=== PATIENT | female | born 1965 | race Caucasian/White ===

== ENCOUNTER 2016-12-12 08:17 | Observation (INO) | payer MEDICARE, BC ==
[2016-12-12 08:23] VITALS: TEMP 98.4; O2SAT 99; BMI 23.0
[2016-12-12] MEDS ORDERED: TDAP Vaccine 0.5 mL Syr IM ONE (09:22)
--- NOTE | 2016-12-12 09:29 | ED PDOC ---
HPI: Trauma/Fall - HPI Time Seen by Provider: 12/12/16 09:09 Chief Complaint (Nursing): Abnormal Skin Integrity Additional Complaint(s): Patient is a 51 y/o F presenting after fall. She reports that she took a valium to sleep at 1am. She reports that she next woke up on the floor next to her bed. She denies other drug use. She denies anticoagulant use. She denies chest pain, shortness of breath, nausea/vomiting, hip pain or extremity pain. Denies new weakness or urinary incontinence. Last tetanus unknown. Past Medical History Vital Signs: Last Vital Signs Temp 98.4 F 12/12/16 08:22 Pulse 85 12/12/16 12:30 Resp 16 12/12/16 12:30 BP 138/73 12/12/16 12:30 Pulse Ox 99 12/12/16 17:25 - Medical History PMH: HTN (denies taking any meds for HTN at home), Multiple Sclerosis Denies: Fractures, HIV, Chronic Kidney Disease - Family History Family History: States: Unknown Family Hx - Home Medications Home Medications: Ambulatory Orders Medication Instructions Recorded Baclofen [Lioresal] 10 mg PO BID 10/25/15 Celecoxib [celeBREX] 200 mg PO DAILY 10/25/15 Losartan [Cozaar] 50 mg PO DAILY 10/25/15 Modafinil [Provigil] 200 mg PO BID 10/25/15 Teriflunomide [Aubagio] 14 mg PO DAILY 10/25/15 Topiramate [Topamax] 50 mg PO BID #0 tab 11/02/15 Amantadine [Amantadine 100 mg Cap] 100 mg PO BID 09/04/16 Diazepam [Valium] 10 mg PO BID 09/04/16 Gabapentin [Neurontin] 300 mg PO BID 09/04/16 Oxybutynin Chloride [Oxybutynin 10 mg PO DAILY 09/04/16 Chloride ER] Oxycodone HCl [Oxycontin] 20 mg PO Q12H 09/04/16 Oxycodone HCl/Acetaminophen 1 tab PO Q8H PRN 09/04/16 [Percocet 10-325 mg Tablet] Venlafaxine [Effexor XR] 37.5 mg PO DAILY 09/04/16 Amantadine [Amantadine 100 mg Cap] 100 mg PO BID #30 cap 09/09/16 Baclofen [Lioresal] 10 mg PO BID #30 tab 09/09/16 Celecoxib [celeBREX] 200 mg PO DAILY #30 cap 09/09/16 Gabapentin [Neurontin] 300 mg PO BID #30 cap 09/09/16 Losartan [Cozaar] 50 mg PO DAILY #30 tab 09/09/16 amLODIPine [Norvasc] 10 mg PO DAILY #30 tab 09/09/16 diaZEpam [Valium] 10 mg PO BID #30 tab 09/09/16 - Allergies Allergies/Adverse Reactions: Allergies Allergy/AdvReac Type Severity Reaction Status Date / Time No Known Allergies Allergy Verified 12/12/16 08:26 Review of Systems Constitutional: Negative for: Fever, Chills Cardiovascular: Negative for: Chest Pain, Palpitations, Edema, Light Headedness Respiratory: Negative for: Cough, Shortness of Breath, SOB with Exertion, Wheezing Gastrointestinal: Negative for: Nausea, Vomiting, Abdominal Pain, Diarrhea, Constipation Genitourinary Female: Negative for: Dysuria Musculoskeletal: Negative for: Neck Pain, Shoulder Pain, Arm Pain, Back Pain, Hand Pain, Leg Pain, Foot Pain Skin: Negative for: Rash, Lesions Neurological: Positive for: Headache (mild). Negative for: Weakness, Numbness, Incoordination, Change in Speech, Confusion, Seizures, Altered Mental Status, Dizziness Psych: Negative for: Anxiety, Depression Physical Exam - Reviewed Nursing Documentation Reviewed: Yes Vital Signs Reviewed: Yes - Physical Exam Appears: Positive for: Well, Non-toxic, No Acute Distress Head Exam: Negative for: ATRAUMATIC (3cm laceration to L forehead) Eye Exam: Positive for: EOMI, PERRL Neck: Positive for: Normal, Painless ROM, Supple Cardiovascular/Chest: Positive for: Regular Rate, Rhythm, Chest Non Tender Respiratory: Positive for: Normal Breath Sounds. Negative for: Rales, Rhonchi, Wheezing Gastrointestinal/Abdominal: Positive for: Soft. Negative for: Tenderness, Mass , Distended Back: Positive for: Normal Inspection. Negative for: L CVA Tenderness, R CVA Tenderness Extremity: Positive for: Normal ROM. Negative for: Pedal Edema Neurologic/Psych: Positive for: planning director II-XII, Oriented. Negative for: Alert ( lethargic) - Laboratory Results Result Diagrams: 12/12/16 10:50 12/12/16 10:50 - ECG O2 Sat by Pulse Oximetry: 99 Medical Decision Making Medical Decision Making: Patient presenting after fall. Will get CT head, CT c-spine and give tetanus 10:16AM EKG shows NSR at 80 bpm with normal intervals and no ST changes. 10:26AM called to provide collateral information. He reports that patient always has difficulty sleeping at night. He reports that she did not sleep well last night and took her anxiety medication which causes her to get sleepy. She reports that she fell out of bed and hit her head on the corner of the dresser. 2:23PM Refer to downtime chart for futher information CT head and CT c-spine negative for acute disease. Utox shows opiods and benzodiazepines. Labs reviewed and normal creatinine but instructed to follow- up due to increasing bun. Normal WBC and baseline anemia. Drinking water and eating a tray of food in ED. Laceration cleaned and repaired with 3 ok. Patient is now ambulating around the ED with her cane (baseline) and tolerating po. Patient is at baseline. Walking around. Family member came to pick her up ED OBSERVATION Discharge: Yes Date of observation admission: 12/12/16 Time of observation admission: 10:05 - Observation admission statement Patient is being placed in observation because:: Continued monitoring due to altered mental status and recent fall - Goals of Observation Goals of observation are:: monitoring, neuro checks Disposition - Clinical Impression Clinical Impression: Fall - Disposition Disposition: Routine/Home Disposition Time: 10:02 Condition: FAIR Laceration - Laceration Repair No standard instances Wound Length (In cm): 2 in Description Of Wound: Linear Anesthesia: Lidocaine 1% Wound Examination: Irrigated With Saline Wound Closure: [place] (3) Wound Complexity: Simple
[2016-12-12 10:58] LABS: BASO % 0.5 % (0.0-2.0); EOS # 0.5 K/uL (0.0-0.7); HEMATOCRIT 36.1 % (34.0-47.0); LYMPH # 1.8 K/uL (1.0-4.3); LYMPH % 28.2 % (20.0-40.0); MEAN CELL VOLUME 88.9 fl (81.0-99.0); MEAN CORPUSCULAR HEMOGLOBIN 29.2 pg (27.0-31.0); MEAN CORPUSCULAR HGB CONC 32.8 g/dL (33.0-37.0); MEAN PLATELET VOLUME 8.7 fl (7.2-11.7); MONO # 0.7 K/uL (0.0-0.8); MONO % 11.2 % (0.0-10.0); NEUT # 3.3 K/uL (1.8-7.0); NEUT % 52.1 % (50.0-75.0); NRBC % 0.1 % (0.0-0.0); RED CELL DISTRIBUTION WIDTH 13.2 % (11.5-14.5); WHITE BLOOD COUNT 6.3 K/uL (4.8-10.8)
[2016-12-12 11:16] LABS: ALCOHOL SERUM < 10 mg/dl (0-10); BLOOD UREA NITROGEN 43 mg/dl (7-17); CALCIUM 9.6 mg/dL (8.4-10.2); CARBON DIOXIDE 29 mmol/L (22-30); CHLORIDE 100 mmol/L (98-107); GFR AFRICAN-AMERICAN > 60; GLUCOSE,RANDOM 131 mg/dL (65-105); POTASSIUM 3.6 MMOL/L (3.6-5.0); SODIUM 140 mmol/l (132-148)
--- NOTE | 2016-12-12 12:39 | CT ---
PROCEDURE: CT HEAD WITHOUT CONTRAST. HISTORY: head injury, fall COMPARISON: Comparison made with CT scan brain dated 10/25/2015 TECHNIQUE: Axial computed tomography images were obtained through the head/brain without intravenous contrast. Radiation dose: Total exam DLP = 1087.03 mGy-cm. This CT exam was performed using one or more of the following dose reduction techniques: Automated exposure control, adjustment of the mA and/or kV according to patient size, and/or use of iterative reconstruction technique. FINDINGS: HEMORRHAGE: No acute parenchymal, subarachnoid or extra-axial hemorrhage. BRAIN: Moderate -significant chronic periventricular white matter ischemic changes again seen extending peripherally into the deep and subcortical white matter both cerebral hemispheres. There is also some extension these changes into the white matter tracts of both basal nuclei. VENTRICLES: Moderate to significant central volume loss evidenced by disproportionate enlargement of the ventricles compared the sulci. CALVARIUM: No acute calvarial fractures. . There is a small left superior frontal scalp contusion with overlying scalp laceration associated with a few small bubbles of subcutaneous air PARANASAL SINUSES: Unremarkable as visualized. No significant inflammatory changes. MASTOID AIR CELLS: Unremarkable as visualized. No inflammatory changes. OTHER FINDINGS: None. IMPRESSION: No acute intracranial hemorrhage. Moderate to significant chronic white matter ischemic changes with extension into the white matter tracts of both basal nuclei. Left superior frontal scalp contusion/laceration associate with a few small bubbles of subcutaneous air. Moderate central volume loss.
--- NOTE | 2016-12-12 12:47 | CT ---
PROCEDURE: CT Cervical Spine without contrast HISTORY: <fall> COMPARISON: None available. TECHNIQUE: Axial computed tomography images were obtained of the cervical spine without the use of intravenous contrast. Coronal and sagittal reformatted images were created and reviewed. Radiation dose: Total exam DLP = 382.97 mGy-cm. This CT exam was performed using one or more of the following dose reduction techniques: Automated exposure control, adjustment of the mA and/or kV according to patient size, and/or use of iterative reconstruction technique. FINDINGS: VERTEBRAE: No acute compression fractures nor retropulsed fragments. . Vertebral bodies exhibit normal stature. All There is straightening of the normal upper cervical lordosis which may in part be secondary to patient positioning gantry however underlying element of muscle spasm may contribute. DISCS/SPINAL CANAL/NEURAL FORAMINA: There is mild disc space narrowing seen at the C5-C6 and C6-C7 levels. No disc herniation or significant disc bulge. Facet joints are slightly overgrown low with minimal degenerative squaring of the uncovertebral joints. The overall central canal and exit foramina do appear adequate. . The remaining levels exhibit relatively adequate disc height. No disc herniation or significant disc bulge. Central canal and exit foramina are adequate at the remaining levels. PARASPINAL SOFT TISSUES: Prevertebral soft tissues unremarkable. OTHER FINDINGS: None. IMPRESSION: No acute fractures. Straightening of the normal cervical lordosis could be secondary to patient positioning in the gantry however underlying element of muscle spasm may contribute. Minor multilevel degenerative spondylosis.
[2016-12-12] MEDS ORDERED: Lidocaine 1% Inj (20ml) ONE (13:07)
[2016-12-12 14:51] VITALS: BP 138/73; PULSE 85; RESP 16
--- NOTE | 2016-12-13 18:51 | CARD ---
APPROVED REPORT EKG Measurement Heart [id number] <Conclusion> Normal sinus rhythm Normal ECG
== END 2016-12-12 17:25 | disposition home or self-care (01) ==
LOC: H.ER 08:17 → H.EROBSV 10:00
PROVIDERS: ADMIT Emergency Medicine; ATTEND Emergency Medicine
DX: S01.81XA Laceration without foreign body of other part of head, initial encounter (principal); W06.XXXA Fall from bed, initial encounter; Y93.9 Activity, unspecified; Y92.003 Bedroom of unspecified non-institutional (private) residence as the place of occurrence of the external cause; Y99.9 Unspecified external cause status; Z23 Encounter for immunization; I10 Essential (primary) hypertension; D64.9 Anemia, unspecified; G35 Multiple sclerosis
CPT/HCPCS: 12001; 70450; 72125; 80048; 85025; 90471; 90715; G0378; G0480

== ENCOUNTER 2017-03-13 01:48 | Emergency (ER) | payer MEDICARE, BC ==
[2017-03-13 01:49] VITALS: BMI 23.0
--- NOTE | 2017-03-13 02:25 | ED PDOC ---
HPI: General Adult Time Seen by Provider: 03/13/17 02:10 Chief Complaint (Nursing): Anxiety Chief Complaint (Provider): eval History Per: Patient, Family (cousin) History/Exam Limitations: no limitations Onset/Duration Of Symptoms: Hrs Current Symptoms Are (Timing): Better Additional History Per: Patient Additional Complaint(s): 51 y/o female brought in by EMS for eval. Patient states tonight she developed crampy abdominal pain, threw up once, and afterwards felt "panicked" and had difficulty catching her breath with associated chest tightness. Patient states upon arrival to ED all symptoms resolved. Patient denies headache, dizziness, extremity numbness/weakness, chest pain, shortness of breath, palpitations, abdominal pain, changes in bowel movements, urinary symptoms. Patient denies suicidal/homicidal ideations or any other psych complaint at this time. Past Medical History Reviewed: Historical Data, Nursing Documentation, Vital Signs Vital Signs: Last Vital Signs Temp 97.8 F 03/13/17 04:52 Pulse 82 03/13/17 04:52 Resp 16 03/13/17 04:52 BP 143/83 03/13/17 04:52 Pulse Ox 100 03/13/17 05:04 - Medical History PMH: Anxiety, Depression, HTN (denies taking any meds for HTN at home), Multiple Sclerosis, Seizures, Chronic Pain Denies: Fractures, HIV, Chronic Kidney Disease - Surgical History Surgical History: No Surg Hx - Family History Family History: States: Unknown Family Hx - Living Arrangements Living Arrangements: With Family - Home Medications Home Medications: Ambulatory Orders Medication Instructions Recorded Baclofen [Lioresal] 10 mg PO BID 10/25/15 Celecoxib [celeBREX] 200 mg PO DAILY 10/25/15 Losartan [Cozaar] 50 mg PO DAILY 10/25/15 Modafinil [Provigil] 200 mg PO BID 10/25/15 Teriflunomide [Aubagio] 14 mg PO DAILY 10/25/15 Topiramate [Topamax] 50 mg PO BID #0 tab 11/02/15 Amantadine [Amantadine 100 mg Cap] 100 mg PO BID 09/04/16 Diazepam [Valium] 10 mg PO BID 09/04/16 Gabapentin [Neurontin] 300 mg PO BID 09/04/16 Oxybutynin Chloride [Oxybutynin 10 mg PO DAILY 09/04/16 Chloride ER] Oxycodone HCl [Oxycontin] 20 mg PO Q12H 09/04/16 Oxycodone HCl/Acetaminophen 1 tab PO Q8H PRN 09/04/16 [Percocet 10-325 mg Tablet] Venlafaxine [Effexor XR] 37.5 mg PO DAILY 09/04/16 Amantadine [Amantadine 100 mg Cap] 100 mg PO BID #30 cap 09/09/16 Baclofen [Lioresal] 10 mg PO BID #30 tab 09/09/16 Celecoxib [celeBREX] 200 mg PO DAILY #30 cap 09/09/16 Gabapentin [Neurontin] 300 mg PO BID #30 cap 09/09/16 Losartan [Cozaar] 50 mg PO DAILY #30 tab 09/09/16 amLODIPine [Norvasc] 10 mg PO DAILY #30 tab 09/09/16 diaZEpam [Valium] 10 mg PO BID #30 tab 09/09/16 - Allergies Allergies/Adverse Reactions: Allergies Allergy/AdvReac Type Severity Reaction Status Date / Time No Known Allergies Allergy Verified 12/12/16 08:26 Review of Systems ROS Statement: Except As Marked, All Systems Reviewed And Found Negative Psych: Positive for: Anxiety Physical Exam - Reviewed Nursing Documentation Reviewed: Yes Vital Signs Reviewed: Yes - Physical Exam Appears: Positive for: Well, Non-toxic, No Acute Distress Head Exam: Positive for: ATRAUMATIC, NORMAL INSPECTION, NORMOCEPHALIC Skin: Positive for: Normal Color Eye Exam: Positive for: Normal appearance ENT: Positive for: Normal ENT Inspection Cardiovascular/Chest: Positive for: Regular Rate, Rhythm Respiratory: Positive for: Normal Breath Sounds Gastrointestinal/Abdominal: Positive for: Normal Exam Back: Positive for: Normal Inspection Extremity: Positive for: Normal ROM Neurologic/Psych: Positive for: Alert, Oriented - Laboratory Results Result Diagrams: 03/13/17 02:49 03/13/17 02:49 Urine POC: Negative Urine dip results: Negative for: Leukocyte Esterase, Blood, Nitrate - ECG ECG: Positive for: Viewed By Me (reviewed by ED attending) ECG Rhythm: Positive for: Sinus Rhythm O2 Sat by Pulse Oximetry: 100 - Progress ED Course And Treament: labs, urine, EKG, Clonidine PO On re-eval, patient BP still elevated, IV labetalol ordered, Potassium PO ordered for 3.4 level 5:00 Patient resting comfortably, no acute complaints. Patient educated on findings, advised follow up PMD for BP eval. Follow up neurology as scheduled. Return to ED for worsening/concerning symptoms. Disposition - Clinical Impression Clinical Impression: Hypertension, Anxiety - Patient ED Disposition Is Patient to be Admitted: No Counseled Patient/Family Regarding: Studies Performed, Diagnosis, Need For Followup - Disposition Referrals: Igor Alvarez MD [Primary Care Provider] - Disposition: Routine/Home Disposition Time: 04:59 Condition: IMPROVED Instructions: Hypertension (ED), Anxiety (ED)
[2017-03-13 02:52] LABS: BASO # 0.1 K/uL (0.0-0.2); BASO % 0.7 % (0.0-2.0); EOS % 0.1 % (0.0-4.0); HEMATOCRIT 38.2 % (34.0-47.0); LYMPH # 0.9 K/uL (1.0-4.3); MEAN PLATELET VOLUME 8.2 fl (7.2-11.7); MONO # 0.5 K/uL (0.0-0.8); MONO % 6.8 % (0.0-10.0); NEUT # 6.3 K/uL (1.8-7.0); NEUT % 80.4 % (50.0-75.0); RED CELL DISTRIBUTION WIDTH 13.8 % (11.5-14.5); WHITE BLOOD COUNT 7.8 K/uL (4.8-10.8)
[2017-03-13 03:21] LABS: BLOOD UREA NITROGEN 15 mg/dl (7-17); CALCIUM 10.6 mg/dL (8.4-10.2); CARBON DIOXIDE 26 mmol/L (22-30); CHLORIDE 108 mmol/L (98-107); GFR AFRICAN-AMERICAN > 60; GLUCOSE,RANDOM 113 mg/dL (65-105); POTASSIUM 3.4 MMOL/L (3.6-5.0); SODIUM 147 mmol/l (132-148)
[2017-03-13 03:22] LABS: ALB/GLOB RATIO 1.4 (1.0-2.1); ALKALINE PHOSPHATASE 83 U/L (38-126); ALT/SGPT 53 U/L (9-52); AST/SGOT 37 U/L (14-36); BILIRUBIN,TOTAL 0.4 mg/dl (0.2-1.3)
[2017-03-13] MEDS ORDERED: Potassium Chloride 20 mEq ER Tab PO ONE ×2 (03:25→03:32)
[2017-03-13] MEDS ORDERED: Labetalol 5 mg/ml Inj 20ML IVP STA (04:00)
[2017-03-13 04:55] VITALS: BP 143/83; PULSE 82; RESP 16; TEMP 97.8
[2017-03-13 05:01] VITALS: O2SAT 100
== END 2017-03-13 05:23 | disposition home or self-care (01) ==
LOC: H.ER 01:48
DX: F41.9 Anxiety disorder, unspecified (principal); I10 Essential (primary) hypertension

== ENCOUNTER 2017-09-23 15:22 | Inpatient (IN) | payer MEDICARE, BC ==
[2017-09-23 15:23] VITALS: BMI 23.0
--- NOTE | 2017-09-23 15:48 | ED PDOC ---
HPI: General Adult Time Seen by Provider: 09/23/17 15:35 Chief Complaint (Nursing): Infusion Therapy Chief Complaint (Provider): VISUAL DIFFICULTY/NUMBNESS RIGHT LEG History Per: Patient (52 Y/O FEMALE H/O MULTIPLE SCLEROSIS HERE WITH RIGHT LEG NUMBNESS/VISUAL DISTURBANCE THIS WEEK. STATES SHE IS UNDER CARE OF DR. CHAVEZ AND ADVISED BY HIM TO COME TO ED FOR IV STEROIDS. DENIES ANY FEVERS/CHILLS. NOTES FREQUENT UTIS.) Past Medical History Reviewed: Historical Data, Nursing Documentation, Vital Signs Vital Signs: Last Vital Signs Temp 99.1 F 09/23/17 15:26 Pulse 114 H 09/23/17 15:26 Resp 19 09/23/17 15:26 BP 165/89 H 09/23/17 15:26 Pulse Ox 98 09/23/17 15:48 - Medical History PMH: Anxiety, Depression, HTN (denies taking any meds for HTN at home), Multiple Sclerosis, Seizures, Chronic Pain Denies: Fractures, HIV, Chronic Kidney Disease - Family History Family History: States: Unknown Family Hx - Home Medications Home Medications: Ambulatory Orders Medication Instructions Recorded Baclofen [Lioresal] 10 mg PO BID 10/25/15 Celecoxib [celeBREX] 200 mg PO DAILY 10/25/15 Losartan [Cozaar] 50 mg PO DAILY 10/25/15 Modafinil [Provigil] 200 mg PO BID 10/25/15 Teriflunomide [Aubagio] 14 mg PO DAILY 10/25/15 Topiramate [Topamax] 50 mg PO BID #0 tab 11/02/15 Amantadine [Amantadine 100 mg Cap] 100 mg PO BID 09/04/16 Diazepam [Valium] 10 mg PO BID 09/04/16 Gabapentin [Neurontin] 300 mg PO BID 09/04/16 Oxybutynin Chloride [Oxybutynin 10 mg PO DAILY 09/04/16 Chloride ER] Oxycodone HCl [Oxycontin] 20 mg PO Q12H 09/04/16 Oxycodone HCl/Acetaminophen 1 tab PO Q8H PRN 09/04/16 [Percocet 10-325 mg Tablet] Venlafaxine [Effexor XR] 37.5 mg PO DAILY 09/04/16 amLODIPine [Norvasc] 10 mg PO DAILY #30 tab 09/09/16 - Allergies Allergies/Adverse Reactions: Allergies Allergy/AdvReac Type Severity Reaction Status Date / Time No Known Allergies Allergy Verified 12/12/16 08:26 Review of Systems ROS Statement: Except As Marked, All Systems Reviewed And Found Negative Physical Exam - Reviewed Nursing Documentation Reviewed: Yes Vital Signs Reviewed: Yes - Physical Exam Appears: Positive for: Well, Non-toxic, No Acute Distress Head Exam: Positive for: ATRAUMATIC, NORMAL INSPECTION, NORMOCEPHALIC Skin: Positive for: Normal Color, Warm, DRY Eye Exam: Positive for: EOMI, Normal appearance, PERRL ENT: Positive for: Normal ENT Inspection Neck: Positive for: Normal, Painless ROM Cardiovascular/Chest: Positive for: Regular Rate, Rhythm Respiratory: Positive for: CNT, Normal Breath Sounds Gastrointestinal/Abdominal: Positive for: Normal Exam, Bowel Sounds, Soft Back: Positive for: Normal Inspection Extremity: Positive for: Normal ROM Neurologic/Psych: Positive for: Alert, Oriented - Laboratory Results Result Diagrams: 09/23/17 16:14 09/23/17 16:14 - ECG O2 Sat by Pulse Oximetry: 98 - Progress ED Course And Treament: D/W DR. CHAVEZ. RECOMMENDS ADMISSION AND IV SOLUMEDROL DAILY X 5 DAYS. D/W DR. HERRERA. SOLUMEDROL 1 GM IV X 1 DOSE Disposition - Clinical Impression Clinical Impression: Multiple sclerosis exacerbation - Patient ED Disposition Is Patient to be Admitted: Yes - Disposition Disposition Time: 17:02 Condition: FAIR Forms: [facility] (Fijian) - Pt Status Changed To: Hospital Disposition Of: Inpatient - Admit Certification Admit to Inpatient:: After my assessment, the patient will require hospitalization for at least two midnights. This is because of the severity of symptoms shown, intensity of services needed, and/or the medical risk in this patient being treated as an outpatient.
[2017-09-23 16:22] LABS: BASO # 0.1 K/uL (0.0-0.2); BASO % 1.4 % (0.0-2.0); EOS # 0.2 K/uL (0.0-0.7); EOS % 3.1 % (0.0-4.0); LYMPH # 1.9 K/uL (1.0-4.3); LYMPH % 35.7 % (20.0-40.0); MEAN CELL VOLUME 87.7 fl (81.0-99.0); MEAN CORPUSCULAR HEMOGLOBIN 29.3 pg (27.0-31.0); MEAN CORPUSCULAR HGB CONC 33.4 g/dL (33.0-37.0); MEAN PLATELET VOLUME 7.7 fl (7.2-11.7); MONO # 0.4 K/uL (0.0-0.8); NEUT # 2.7 K/uL (1.8-7.0); NEUT % 52.8 % (50.0-75.0); NRBC % 0.1 % (0.0-0.0); RBC 4.44 Mil/uL (3.80-5.20); RED CELL DISTRIBUTION WIDTH 13.6 % (11.5-14.5); WHITE BLOOD COUNT 5.2 K/uL (4.8-10.8)
[2017-09-23 16:29] LABS: ALB/GLOB RATIO 1.3 (1.0-2.1); ALBUMIN 4.9 g/dL (3.5-5.0); ALT/SGPT 50 U/L (9-52); AST/SGOT 40 U/L (14-36); BLOOD UREA NITROGEN 36 mg/dl (7-17); CALCIUM 10.1 mg/dL (8.4-10.2); GFR AFRICAN-AMERICAN > 60; GFR NON-AFRICAN AMERICAN > 60
[2017-09-23 16:33] LABS: SQUAMOUS EPITHIAL 1 /hpf (0-5); URINE BILIRUBIN NEGATIVE (NEGATIVE); URINE BLOOD NEGATIVE (NEGATIVE); URINE CLARITY CLEAR (Clear); URINE COLOR YELLOW (YELLOW); URINE GLUCOSE (UA) NEG (Normal); URINE HYALINE CAST 0-2 /hpf (0-2); URINE LEUKOCYTE ESTERASE NEG Leu/uL (Negative); URINE PROTEIN 30 mg/dL (NEGATIVE); URINE UROBILINOGEN 0.2-1.0 mg/dL (0.2-1.0)
[2017-09-23] MEDS ORDERED: methylPREDNISolone 1 GM in Sodium Chloride 0.9% 250 ML IV SCH (16:45)
--- NOTE | 2017-09-23 17:09 | CT ---
PROCEDURE: CT HEAD WITHOUT CONTRAST. HISTORY: MS EXACERBATION/DIFFICULTY WITH VISION/RT LEG NUMB COMPARISON: Noncontrast head CT performed 12/12/16 TECHNIQUE: Axial computed tomography images were obtained through the head/brain without intravenous contrast. Radiation dose: Total exam DLP = 838.80 mGy-cm. This CT exam was performed using one or more of the following dose reduction techniques: Automated exposure control, adjustment of the mA and/or kV according to patient size, and/or use of iterative reconstruction technique. FINDINGS: HEMORRHAGE: No intracranial hemorrhage. BRAIN: Diffuse atrophy. No mass effect or edema. Dense intracranial atherosclerosis. Moderate scattered periventricular and subcortical white matter hypodensities, which are nonspecific, but often seen with chronic microvascular ischemic disease. VENTRICLES: Ventricular prominence remains out of proportion to sulcal size and may be seen in the setting of NPH; correlate clinically. CALVARIUM: Unremarkable. PARANASAL SINUSES: Unremarkable as visualized. No significant inflammatory changes. MASTOID AIR CELLS: Unremarkable as visualized. No inflammatory changes. OTHER FINDINGS: None. IMPRESSION: Moderate nonspecific white matter changes. Ventricular prominence remains out of proportion to sulcal size and may be seen in the setting of NPH; correlate clinically. Generalized atrophy. Please note that MRI with diffusion imaging is more sensitive in the detection of acute ischemic event.
--- NOTE | 2017-09-23 17:52 | RAD ---
PROCEDURE: CHEST RADIOGRAPH, 1 VIEW HISTORY: ROUTINE COMPARISON: 09/04/2016 FINDINGS: LUNGS: Clear. PLEURA: No pneumothorax or pleural fluid seen. CARDIOVASCULAR: No radiographic findings to suggest acute or significant cardiovascular disease. OSSEOUS STRUCTURES: No significant abnormalities. VISUALIZED UPPER ABDOMEN: Normal. OTHER FINDINGS: None. IMPRESSION: No active disease. No acute/significant interval changes.
[2017-09-23] MEDS ORDERED: Patient's Own Med (Oxycodone Hcl/Acetaminophen [Percocet 10-325 Mg Tablet] 1 TAB) PO PRN (23:01)
[2017-09-23] MEDS ORDERED: HYDROCODONE BITARTRATE 10 MG PO SCH (23:15)
[2017-09-23] MEDS: Ergocalciferol 50,000 Intl Units Cap PO SCH (23:36)
[2017-09-24] MEDS ORDERED: Pneumococcal 23-Valent Vaccine IM ONE (07:22)
[2017-09-24] MEDS: Enoxaparin 40 mg Syringe SC SCH (09:32)
[2017-09-24] MEDS: methylPREDNISolone 1 GM in Sodium Chloride 0.9% 250 ML IV SCH (10:19)
--- NOTE | 2017-09-24 11:18 | CP.PCM.HP ---
History of Present Illness - History of Present Illness History of Present Illness: Patient is 52 y/o lady with Hx of MS. She presented in ER with increasing weakness, numbness, unsteadiness in the limbs, increase in the spasticity, diplopia and visual problems, severe disequilibrium. The patient was seen in my office recently an she was able to ambulate and at that time denied visual problem and diplopia. Will admit for high steroid dose iv for exacerbation of MS. Present on Admission - Present on Admission Any Indicators Present on Admission: No Review of Systems - Constitutional Constitutional: Weakness - EENT Eyes: Blurred Vision, Diplopia Ears: Disequilibrium, Dizziness Nose/Mouth/Throat: As Per HPI - Breasts Breasts: As Per HPI - Cardiovascular Cardiovascular: As Per HPI - Respiratory Respiratory: As Per HPI - Gastrointestinal Gastrointestinal: As Per HPI - Genitourinary Genitourinary: Urinary Incontinence - Musculoskeletal Musculoskeletal: Abnormal Gait, Muscle Weakness, Numbness - Neurological Neurological: Abnormal Gait, Abnormal Movements, Abnormal Speech, Disequilibrium , Dizziness, Numbness, Sensory Deficit, Weakness - Psychiatric Psychiatric: Anxiety, Depression - Endocrine Endocrine: As Per HPI Past Patient History - Past Medical History & Family History Past Medical History?: Yes - Past Social History Smoking Status: Never Smoked - CARDIAC Hx Cardiac Disorders: Yes Hx Hypertension: Yes (denies taking any meds for HTN at home) - PULMONARY Hx Respiratory Disorders: No - NEUROLOGICAL Hx Neurological Disorder: Yes - HEENT Hx HEENT Problems: Yes Other/Comment: wears eyeglasses - RENAL Hx Chronic Kidney Disease: No - ENDOCRINE/METABOLIC Hx Endocrine Disorders: No - HEMATOLOGICAL/ONCOLOGICAL Hx Blood Disorders: Yes Hx Anemia: Yes Hx Human Immunodeficiency Virus (HIV): No - INTEGUMENTARY Hx Dermatological Problems: No - MUSCULOSKELETAL/RHEUMATOLOGICAL Hx Falls: Yes Hx Fractures: No - GASTROINTESTINAL Hx Gastrointestinal Disorders: No - GENITOURINARY/GYNECOLOGICAL Hx Genitourinary Disorders: Yes Other/Comment: neurogenic bladder - PSYCHIATRIC Hx Psychophysiologic Disorder: Yes Hx Anxiety: Yes Hx Depression: Yes Hx Substance Use: No - SURGICAL HISTORY Hx Surgeries: Yes Other/Comment: Removal of ovarian cyst - ANESTHESIA Hx Anesthesia: Yes Hx Anesthesia Reactions: No Hx Malignant Hyperthermia: No Has any member of the family had a problem w/ anesthesia?: No Meds Allergies/Adverse Reactions: Allergies Allergy/AdvReac Type Severity Reaction Status Date / Time No Known Allergies Allergy Verified 12/12/16 08:26 Physical Exam - Constitutional Appears: Chronically Ill - Head Exam Head Exam: ATRAUMATIC, NORMAL INSPECTION, NORMOCEPHALIC - ENT Exam ENT Exam: Normal Exam - Neck Exam Neck exam: Positive for: Normal Inspection - Respiratory Exam Respiratory Exam: Decreased Breath Sounds, Clear to Auscultation Bilateral - Cardiovascular Exam Cardiovascular Exam: REGULAR RHYTHM, +S1, +S2 - GI/Abdominal Exam GI & Abdominal Exam: Normal Bowel Sounds - Rectal Exam Rectal Exam: Deferred - Back Exam Back exam: muscle spasm - Neurological Exam Neurological exam: Abnormal Gait Additional comments: Disequilibrium, spasticity, dysartria, sensory deficit in both lower limbs - Psychiatric Exam Psychiatric exam: Anxious, Depressed - Skin Skin Exam: Normal Color Results - Vital Signs Recent Vital Signs: Last Vital Signs Temp 97.5 F L 09/24/17 08:07 Pulse 100 H 09/24/17 09:31 Resp 20 09/24/17 08:07 BP 147/81 09/24/17 09:31 Pulse Ox 96 09/24/17 08:07 - Labs Result Diagrams: 09/23/17 16:14 09/23/17 16:14 Labs: Laboratory Results - last 24 hr 09/23/17 09/23/17 09/23/17 16:14 16:14 16:14 WBC 5.2 RBC 4.44 Hgb 13.0 Hct 38.9 MCV 87.7 MCH 29.3 MCHC 33.4 RDW 13.6 Plt Count 262 MPV 7.7 Neut % (Auto) 52.8 Lymph % (Auto) 35.7 [place] % (Auto) 7.0 Eos % (Auto) 3.1 Baso % (Auto) 1.4 Neut # (Auto) 2.7 Lymph # (Auto) 1.9 [place] # (Auto) 0.4 Eos # (Auto) 0.2 Baso # (Auto) 0.1 Sodium 146 Potassium 3.9 Chloride 101 Carbon Dioxide 27 Anion Gap 22 H BUN 36 H Creatinine 0.7 Est GFR ( Amer) > 60 Est GFR (Non-Af Amer) > 60 Random Glucose 104 Calcium 10.1 Total Bilirubin 0.4 AST 40 H ALT 50 Alkaline Phosphatase 82 Total Protein 8.8 H Albumin 4.9 Globulin 3.9 Albumin/Globulin Ratio 1.3 Urine Color Yellow Urine Clarity Clear Urine pH 5.0 Ur Specific [place] 1.020 Urine Protein 30 Urine Glucose (UA) Neg Urine Ketones Negative Urine Blood Negative Urine Nitrate Negative Urine Bilirubin Negative Urine Urobilinogen 0.2-1.0 Ur Leukocyte Esterase Neg Urine RBC (Auto) 1 Urine Microscopic WBC 1 Ur Squamous Epith Cells 1 Hyaline Casts 0-2 Assessment & Plan (1) Multiple sclerosis exacerbation Status: Acute Priority: High (2) Adjustment disorder Status: Chronic (3) Anxiety Status: Acute (4) DVT prophylaxis Status: Acute Priority: Medium (5) Debility Status: Chronic (6) Depression Status: Chronic Priority: High - Assessment and Plan (Free Text) Plan: As per orders.
--- NOTE | 2017-09-24 12:09 | CARD ---
APPROVED REPORT EKG Measurement Heart [id number] <Conclusion> Normal sinus rhythm Possible Left atrial enlargement Borderline ECG
[2017-09-24] MEDS ORDERED: Gadodiamide 287 MG/ML VIAL (15ML) IV ONE (14:50)
--- NOTE | 2017-09-24 17:32 | MRI ---
PROCEDURE: MRI BRAIN WITH AND WITHOUT CONTRAST HISTORY: MS exac. COMPARISON: Brain MRI without contrast dated 09/06/[address] 09/23/2017. TECHNIQUE: Multiplanar, multisequence MR images of the brain were obtained with and without intravenous contrast enhancement. FINDINGS: HEMORRHAGE: None DWI: No evidence of an acute or early subacute infarction. BRAIN PARENCHYMA: Prominent white matter volume loss and residual white-matter signal abnormality is appreciated throughout the cerebrum once again with likely resultant ex vacuo dilatation of the bilateral lateral ventricles as well as the 3rd and 4th ventricle somewhat. No suspicious intracranial enhances appreciated this patient with known history multiple sclerosis with stable appearing relatively unremarkable posterior fossa contents once again. No mass effect or suspicious extra-axial fluid collection is identified and limited cortical atrophy is appreciate diffusely. ENHANCEMENT: No abnormal intracranial enhancement. VENTRICLES: As above. CRANIUM: Unremarkable. ORBITS: Grossly unremarkable. PARANASAL SINUSES/MASTOIDS: Clear VASCULAR SYSTEM: Skull base flow voids intact. OTHER FINDINGS: None . IMPRESSION: Stable advanced demyelination pattern in the cerebrum as discussed above with no abnormal intracranial enhancement evident. Presumed ex vacuo expansion of the ventricular system is again are identified with hydrocephalus not favored though in the proper clinical setting, this may be the etiology. Clinically correlate further.
[2017-09-24 21:16] LABS: FOLATE 17.8 ng/mL
[2017-09-25] MEDS: methylPREDNISolone 1 GM in Sodium Chloride 0.9% 250 ML IV SCH (08:54)
[2017-09-25] MEDS: Enoxaparin 40 mg Syringe SC SCH (08:55)
[2017-09-25] MEDS: Oxycodone/Acetaminophen 5/325 mg Tab PO PRN ×2 (11:23→17:34)
--- NOTE | 2017-09-25 12:24 | CP.PCM.PN ---
Subjective - Date & Time of Evaluation Date of Evaluation: 09/25/17 Time of Evaluation: 12:26 - Subjective Subjective: Patient improving, still in need of PT. Add cipro for uti. Continue high dosage of steroid. Objective - Vital Signs/Intake and Output Vital Signs (last 24 hours): Temp Pulse Resp BP Pulse Ox 98.4 F 79 19 127/76 98 09/25/17 07:30 09/25/17 09:00 09/25/17 07:30 09/25/17 09:00 09/25/17 07:30 - Medications Medications: Current Medications Acetaminophen (Tylenol 325mg Tab) 650 mg PO Q6 PRN PRN Reason: Headache Last Admin: 09/25/17 00:20 Dose: 650 mg Amantadine HCl (Amantadine 100 Mg Cap) 100 mg PO BID [facility] Last Admin: 09/25/17 08:58 Dose: 100 mg Amlodipine Besylate (Norvasc) 10 mg PO DAILY [facility] Last Admin: 09/25/17 09:00 Dose: 10 mg Baclofen (Lioresal) 10 mg PO BID [facility] Last Admin: 09/25/17 08:59 Dose: 10 mg Diazepam (Valium) 10 mg PO HS [facility] Last Admin: 09/24/17 21:21 Dose: 10 mg Enoxaparin Sodium (Lovenox) 40 mg SC DAILY [facility] PRN Reason: Protocol Last Admin: 09/25/17 08:55 Dose: 40 mg Ergocalciferol (Drisdol 50,000 Intl Units Cap) 1 cap PO QWK [facility] Last Admin: 09/23/17 23:36 Dose: 1 cap Gabapentin (Neurontin) 300 mg PO TID [facility] Last Admin: 09/25/17 08:58 Dose: 300 mg Methylprednisolone 1 gm/ (Sodium Chloride) 250 mls @ 62.5 mls/hr IV DAILY [facility] Last Admin: 09/25/17 08:54 Dose: 62.5 mls/hr Ciprofloxacin (Cipro 200mg/100ml D5w) 100 mls @ 100 mls/hr IVPB Q12 [facility] PRN Reason: Protocol Losartan Potassium (Cozaar) 50 mg PO DAILY [facility] Last Admin: 09/25/17 08:58 Dose: 50 mg Modafinil (Provigil) 200 mg PO BID [facility] Last Admin: 09/24/17 17:20 Dose: 200 mg Oxybutynin Chloride (Ditropan Tab) 5 mg PO BID [facility] Last Admin: 09/25/17 08:58 Dose: 5 mg Oxycodone/Acetaminophen (Percocet 5/325 Mg Tab) 1 tab PO Q6 PRN PRN Reason: Pain, moderate (4-7) Stop: 09/28/17 10:37 Last Admin: 09/25/17 11:23 Dose: 1 tab Topiramate (Topamax) 50 mg PO BID [facility] Last Admin: 09/25/17 08:59 Dose: 50 mg - Labs Labs: 09/23/17 16:14 09/23/17 16:14 - Constitutional Appears: Chronically Ill - Head Exam Head Exam: ATRAUMATIC, NORMAL INSPECTION, NORMOCEPHALIC - Eye Exam Eye Exam: Normal appearance - ENT Exam ENT Exam: Mucous Membranes Moist - Neck Exam Neck Exam: Full ROM - Respiratory Exam Respiratory Exam: Decreased Breath Sounds, Clear to Ausculation Bilateral - Cardiovascular Exam Cardiovascular Exam: REGULAR RHYTHM, +S1, +S2 - GI/Abdominal Exam GI & Abdominal Exam: Soft, Normal Bowel Sounds - Extremities Exam Extremities Exam: Normal Inspection - Neurological Exam Neurological Exam: Alert, Awake Additional comments: no new changes - Psychiatric Exam Psychiatric exam: Anxious Assessment and Plan (1) Multiple sclerosis exacerbation Status: Acute (2) Adjustment disorder Status: Chronic (3) Anxiety Status: Acute (4) DVT prophylaxis Status: Acute (5) Debility Status: Chronic (6) Depression Status: Chronic (7) UTI (urinary tract infection) Status: Acute (8) Hypertensive cardiovascular disease Status: Chronic - Assessment and Plan (Free Text) Plan: Continue present rx.
[2017-09-25] MEDS: Ciprofloxacin 200mg/100ml D5W 100 ML IVPB SCH (16:00)
[2017-09-26] MEDS: Oxycodone/Acetaminophen 5/325 mg Tab PO PRN ×3 (00:08→16:33)
[2017-09-26] MEDS: Ciprofloxacin 200mg/100ml D5W 100 ML IVPB SCH ×3 (00:58→16:33)
[2017-09-26] MEDS: Enoxaparin 40 mg Syringe SC SCH (08:56)
[2017-09-26] MEDS: Ergocalciferol 50,000 Intl Units Cap PO SCH (08:56)
[2017-09-26] MEDS: methylPREDNISolone 1 GM in Sodium Chloride 0.9% 250 ML IV SCH (09:00)
--- NOTE | 2017-09-26 09:32 | CP.PCM.PN ---
Subjective - Date & Time of Evaluation Date of Evaluation: 09/26/17 Time of Evaluation: 09:34 - Subjective Subjective: Improving, still c/o same spasm in the back at time severe, vision improving. Will continue present rx for a total of 5 days if stable will dc in after the high dose of steroid Objective - Vital Signs/Intake and Output Vital Signs (last 24 hours): Temp Pulse Resp BP Pulse Ox 97.5 F L 76 18 138/73 99 09/26/17 07:35 09/26/17 08:58 09/26/17 07:35 09/26/17 08:58 09/26/17 07:35 - Medications Medications: Current Medications Acetaminophen (Tylenol 325mg Tab) 650 mg PO Q6 PRN PRN Reason: Headache Last Admin: 09/25/17 00:20 Dose: 650 mg Amantadine HCl (Amantadine 100 Mg Cap) 100 mg PO BID [facility] Last Admin: 09/26/17 08:56 Dose: 100 mg Amlodipine Besylate (Norvasc) 10 mg PO DAILY [facility] Last Admin: 09/26/17 08:58 Dose: 10 mg Baclofen (Lioresal) 10 mg PO BID [facility] Last Admin: 09/26/17 08:56 Dose: 10 mg Diazepam (Valium) 10 mg PO HS [facility] Last Admin: 09/25/17 21:50 Dose: 10 mg Enoxaparin Sodium (Lovenox) 40 mg SC DAILY [facility] PRN Reason: Protocol Last Admin: 09/26/17 08:56 Dose: 40 mg Ergocalciferol (Drisdol 50,000 Intl Units Cap) 1 cap PO QWK [facility] Last Admin: 09/26/17 08:56 Dose: 1 cap Gabapentin (Neurontin) 300 mg PO TID [facility] Last Admin: 09/26/17 08:57 Dose: 300 mg Methylprednisolone 1 gm/ (Sodium Chloride) 250 mls @ 62.5 mls/hr IV DAILY [facility] Last Admin: 09/26/17 09:00 Dose: 62.5 mls/hr Ciprofloxacin (Cipro 200mg/100ml D5w) 100 mls @ 100 mls/hr IVPB Q12@0400,1600 [facility] PRN Reason: Protocol Last Admin: 09/26/17 04:07 Dose: 100 mls/hr Losartan Potassium (Cozaar) 50 mg PO DAILY [facility] Last Admin: 09/26/17 08:57 Dose: 50 mg Modafinil (Provigil) 200 mg PO BID [facility] Last Admin: 09/26/17 09:00 Dose: 200 mg Oxybutynin Chloride (Ditropan Tab) 5 mg PO BID [facility] Last Admin: 09/26/17 08:56 Dose: 5 mg Oxycodone/Acetaminophen (Percocet 5/325 Mg Tab) 1 tab PO Q6 PRN PRN Reason: Pain, moderate (4-7) Stop: 09/28/17 10:37 Last Admin: 09/26/17 09:27 Dose: 1 tab Topiramate (Topamax) 50 mg PO BID [facility] Last Admin: 09/26/17 08:56 Dose: 50 mg - Labs Labs: 09/23/17 16:14 09/23/17 16:14 - Constitutional Appears: Chronically Ill - Head Exam Head Exam: ATRAUMATIC, NORMAL INSPECTION, NORMOCEPHALIC - ENT Exam ENT Exam: Mucous Membranes Moist - Neck Exam Neck Exam: Tenderness - Respiratory Exam Respiratory Exam: Decreased Breath Sounds, Clear to Ausculation Bilateral - Cardiovascular Exam Cardiovascular Exam: REGULAR RHYTHM, +S1, +S2 - GI/Abdominal Exam GI & Abdominal Exam: Soft, Normal Bowel Sounds - Neurological Exam Neurological Exam: Abnormal Gait, Alert, Awake, Oriented x3 Additional comments: paraspinal muscle spasm. - Psychiatric Exam Psychiatric exam: Flat Affect - Skin Skin Exam: Normal Color Assessment and Plan (1) Multiple sclerosis exacerbation Status: Acute (2) Adjustment disorder Status: Chronic (3) Anxiety Status: Acute (4) DVT prophylaxis Status: Acute (5) Debility Status: Chronic (6) Depression Status: Chronic (7) UTI (urinary tract infection) Status: Acute (8) Hypertensive cardiovascular disease Status: Chronic - Assessment and Plan (Free Text) Plan: Continue present rx.
[2017-09-26 15:33] VITALS: RESP 20
[2017-09-26 21:34] LABS: BASO % 0.1 % (0.0-2.0); LYMPH # 0.3 K/uL (1.0-4.3); LYMPH % 4.8 % (20.0-40.0); MEAN CORPUSCULAR HEMOGLOBIN 29.2 pg (27.0-31.0); MEAN CORPUSCULAR HGB CONC 33.6 g/dL (33.0-37.0); MEAN PLATELET VOLUME 6.8 fl (7.2-11.7); MONO # 0.2 K/uL (0.0-0.8); MONO % 4.5 % (0.0-10.0); NEUT % 90.6 % (50.0-75.0); PLATELET COUNT 217 K/uL (130-400); RBC 3.75 Mil/uL (3.80-5.20); RED CELL DISTRIBUTION WIDTH 13.3 % (11.5-14.5); WHITE BLOOD COUNT 5.5 K/uL (4.8-10.8)
[2017-09-26 22:08] LABS: T4 5.05 ug/dl (5.5-11.0)
[2017-09-26 22:15] LABS: ANISOCYTOSIS SLIGHT; BANDS 3 % (0-2); LYMPHOCYTE 7 % (20-50); MONOCYTE 4 % (0-10); NEUTROPHIL 86 % (42-75); PLATELET ESTIMATE NORMAL (NORMAL); TOTAL CELLS COUNTED 100
[2017-09-26 22:16] LABS: BLOOD UREA NITROGEN 27 mg/dl (7-17); CALCIUM 9.7 mg/dL (8.4-10.2); GFR AFRICAN-AMERICAN > 60; GFR NON-AFRICAN AMERICAN > 60; OVALOCYTES SLIGHT
[2017-09-27] MEDS: Oxycodone/Acetaminophen 5/325 mg Tab PO PRN ×2 (00:45→12:35)
[2017-09-27] MEDS: Ciprofloxacin 200mg/100ml D5W 100 ML IVPB SCH ×2 (04:04→16:19)
[2017-09-27] MEDS: Enoxaparin 40 mg Syringe SC SCH (08:29)
[2017-09-27] MEDS: Ergocalciferol 50,000 Intl Units Cap PO SCH (08:29)
[2017-09-27] MEDS: methylPREDNISolone 1 GM in Sodium Chloride 0.9% 250 ML IV SCH (08:33)
--- NOTE | 2017-09-27 15:51 | CP.PCM.DIS ---
Provider - Provider Date of Admission: 09/23/17 16:53 Attending physician: Igor Alvarez MD Time Spent in preparation of Discharge (in minutes): 30 Diagnosis - Discharge Diagnosis (1) Multiple sclerosis exacerbation Status: Acute Priority: High (2) Adjustment disorder Status: Chronic (3) Anxiety Status: Acute (4) DVT prophylaxis Status: Acute Priority: Medium (5) Debility Status: Chronic (6) Depression Status: Chronic Priority: High (7) UTI (urinary tract infection) Status: Acute (8) Hypertensive cardiovascular disease Status: Chronic Hospital Course - Lab Results Lab Results: Micro Results 09/23/17 16:14 Urine Urine Culture - Final Escherichia Coli Most Recent Lab Values WBC 5.5 K/uL (4.8-10.8) 09/26/17 21:31 RBC 3.75 Mil/uL (3.80-5.20) L 09/26/17 21:31 Hgb 11.0 g/dL (12.0-16.0) L D 09/26/17 21:31 Hct 32.6 % (34.0-47.0) L 09/26/17 21:31 MCV 87.0 fl (81.0-99.0) 09/26/17 21:31 MCH 29.2 pg (27.0-31.0) 09/26/17 21:31 MCHC 33.6 g/dL (33.0-37.0) 09/26/17 21:31 RDW 13.3 % (11.5-14.5) 09/26/17 21:31 Plt Count 217 K/uL (130-400) 09/26/17 21:31 MPV 6.8 fl (7.2-11.7) L 09/26/17 21:31 Neut % (Auto) 90.6 % (50.0-75.0) H 09/26/17 21:31 Lymph % (Auto) 4.8 % (20.0-40.0) L 09/26/17 21:31 [place] % (Auto) 4.5 % (0.0-10.0) 09/26/17 21:31 Eos % (Auto) 0.0 % (0.0-4.0) 09/26/17 21:31 Baso % (Auto) 0.1 % (0.0-2.0) 09/26/17 21:31 Neut # (Auto) 5.0 K/uL (1.8-7.0) 09/26/17 21:31 Lymph # (Auto) 0.3 K/uL (1.0-4.3) L 09/26/17 21:31 [place] # (Auto) 0.2 K/uL (0.0-0.8) 09/26/17 21:31 Eos # (Auto) 0.0 K/uL (0.0-0.7) 09/26/17 21:31 Baso # (Auto) 0.0 K/uL (0.0-0.2) 09/26/17 21:31 Neutrophils % (Manual) 86 % (42-75) H 09/26/17 21:31 Band Neutrophils % 3 % (0-2) H 09/26/17 21:31 Lymphocytes % (Manual) 7 % (20-50) L 09/26/17 21:31 Monocytes % (Manual) 4 % (0-10) 09/26/17 21:31 Platelet Estimate Normal (NORMAL) 09/26/17 21:31 Anisocytosis (manual) Slight 09/26/17 21:31 Macrocytosis (manual) Slight 09/26/17 21:31 Ovalocytes Slight 09/26/17 21:31 Sodium 142 mmol/l (132-148) 09/26/17 21:31 Potassium 3.7 MMOL/L (3.6-5.0) 09/26/17 21:31 Chloride 106 mmol/L (98-107) 09/26/17 21:31 Carbon Dioxide 25 mmol/L (22-30) 09/26/17 21:31 Anion Gap 15 (10-20) 09/26/17 21:31 BUN 27 mg/dl (7-17) H 09/26/17 21:31 Creatinine 0.9 mg/dl (0.7-1.2) 09/26/17 21:31 Est GFR ( Amer) > 60 09/26/17 21:31 Est GFR (Non-Af Amer) > 60 09/26/17 21:31 Random Glucose 166 mg/dL (65-105) H 09/26/17 21:31 Calcium 9.7 mg/dL (8.4-10.2) 09/26/17 21:31 Total Bilirubin 0.4 mg/dl (0.2-1.3) 09/23/17 16:14 AST 40 U/L (14-36) H 09/23/17 16:14 ALT 50 U/L (9-52) 09/23/17 16:14 Alkaline Phosphatase 82 U/L (38-126) 09/23/17 16:14 Total Protein 8.8 G/DL (6.3-8.2) H 09/23/17 16:14 Albumin 4.9 g/dL (3.5-5.0) 09/23/17 16:14 Globulin 3.9 gm/dL (2.2-3.9) 09/23/17 16:14 Albumin/Globulin Ratio 1.3 (1.0-2.1) 09/23/17 16:14 Vitamin B12 651 pg/mL (239-931) 09/24/17 11:45 Folate 17.8 ng/mL 09/24/17 11:45 Thyroxine (T4) 5.05 ug/dl (5.5-11.0) L 09/26/17 21:31 Total T3 0.690 nmol/L (1.49-2.60) L 09/26/17 21:31 TSH 3rd Generation 0.04 mIU/ML (0.46-4.68) L 09/26/17 21:31 Urine Color Yellow (YELLOW) 09/23/17 16:14 Urine Clarity Clear (Clear) 09/23/17 16:14 Urine pH 5.0 (5.0-8.0) 09/23/17 16:14 Ur Specific [place] 1.020 (1.003-1.030) 09/23/17 16:14 Urine Protein 30 mg/dL (NEGATIVE) 09/23/17 16:14 Urine Glucose (UA) Neg mg/dL (Normal) 09/23/17 16:14 Urine Ketones Negative mg/dL (NEGATIVE) 09/23/17 16:14 Urine Blood Negative (NEGATIVE) 09/23/17 16:14 Urine Nitrate Negative (NEGATIVE) 09/23/17 16:14 Urine Bilirubin Negative (NEGATIVE) 09/23/17 16:14 Urine Urobilinogen 0.2-1.0 mg/dL (0.2-1.0) 09/23/17 16:14 Ur Leukocyte Esterase Neg [place]/uL (Negative) 09/23/17 16:14 Urine RBC (Auto) 1 /hpf (0-3) 09/23/17 16:14 Urine Microscopic WBC 1 /hpf (0-5) 09/23/17 16:14 Ur Squamous Epith Cells 1 /hpf (0-5) 09/23/17 16:14 Hyaline Casts 0-2 /hpf (0-2) 09/23/17 16:14 RPR Nonreactive (NONREACTIVE) 09/24/17 11:45 - Hospital Course Hospital Course: Patient is 52 y/o lady with Hx of MS. She presented in ER with increasing weakness, numbness, unsteadiness in the limbs, increase in the spasticity, diplopia and visual problems, severe disequilibrium. She well respond to steroid rx will dc home f/u with neuro jade. Discharge Exam - Head Exam Head Exam: ATRAUMATIC, NORMAL INSPECTION, NORMOCEPHALIC - Eye Exam Eye Exam: EOMI, Normal appearance - ENT Exam ENT Exam: Mucous Membranes Dry - Neck Exam Neck exam: Full Rom - Respiratory Exam Respiratory Exam: Clear to PA & Lateral - Cardiovascular Exam Cardiovascular Exam: REGULAR RHYTHM, +S1, +S2 - GI/Abdominal Exam GI & Abdominal Exam: Normal Bowel Sounds - Extremities Exam Extremities exam: normal inspection - Neurological Exam Neurological exam: Abnormal Gait, Alert, CN II-XII Intact, Oriented x3 - Psychiatric Exam Psychiatric exam: Flat Affect - Skin Skin Exam: Normal Color Discharge Plan - Follow Up Plan Condition: FAIR Disposition: HOME/ ROUTINE Instructions: Multiple Sclerosis, Adult (DC) Additional Instructions: follow up with primary MD 7-10 days Referrals: Igor Alvarez MD [Family Provider] -
[2017-09-27 15:56] VITALS: BP 139/88; PULSE 98; TEMP 98; O2SAT 96
== END 2017-09-27 18:30 | disposition home or self-care (01) | DRG 59 ==
LOC: H.ER 15:22 → H.ERHOLD 16:53 → H.MEDSURG1 21:40
PROVIDERS: ADMIT Internal Medicine; ATTEND Internal Medicine
PROC: 3E0234Z Introduction of Serum, Toxoid and Vaccine into Muscle, Percutaneous Approach (ICD-10-PCS; principal; 2017-09-24)
DX: G35 Multiple sclerosis (principal); N39.0 Urinary tract infection, site not specified; I11.9 Hypertensive heart disease without heart failure; N31.9 Neuromuscular dysfunction of bladder, unspecified; B96.20 Unspecified Escherichia coli [E. coli] as the cause of diseases classified elsewhere; F32.9 Major depressive disorder, single episode, unspecified; F43.22 Adjustment disorder with anxiety; G89.29 Other chronic pain; R53.81 Other malaise; Z23 Encounter for immunization

== ENCOUNTER 2018-09-10 05:03 | Inpatient (IN) | payer MEDICARE, BC ==
[2018-09-10] MEDS ORDERED: Sodium Chloride 0.9% 1,000 ML IV STA (05:41)
--- NOTE | 2018-09-10 05:49 | ED PDOC ---
Arrival/HPI - General Chief Complaint: Pain, Chronic Time Seen by Provider: 09/10/18 05:07 Historian: Spouse () EM Caveat: Uncooperative - History of Present Illness Time/Duration: < week (x2 days) Associated Symptoms (Text): 09/10/18 05:46 53 y/o female with history of HTN was brought to the ED by [facility]. Patient is completely unwilling to provide history, provided history on behalf of patient. Per , patient has had x2 days of what they believe is a flare up of her multiple sclerosis. Patient follows with Dr. Ramírez for her multiple sclerosis. On arrival patient is yelling repeatedly with pain. states patient has been compliant with her medications. Denies any drug or alcohol use. Patient's interaction with provider alternates between refusing to answer and closing her eyes and opening her eyes and screaming and yelling. Past Medical History - Cardiac Hx Hypertension: Yes - Pulmonary Hx Respiratory Disorders: No - Neurological Hx Multiple Sclerosis: Yes Hx Seizures: Yes - HEENT Hx HEENT Disorder: Yes Other/Comment: wears eyeglasses - Renal Hx Renal Disorder: No - Endocrine/Metabolic Hx Endocrine Disorders: No - Hematological/Oncological Hx Anemia: Yes - Integumentary Hx Dermatological Disorder: No - Musculoskeletal/Rheumatological Hx Fractures: No - Gastrointestinal Hx Gastrointestinal Disorders: No - Genitourinary/Gynecological Hx Genitourinary Disorders: Yes Other/Comment: neurogenic bladder - Psychiatric Hx Anxiety: Yes Hx Depression: Yes Hx Substance Use: No - Surgical History Other/Comment: Removal of ovarian cyst - Anesthesia Hx Anesthesia: Yes Hx Anesthesia Reactions: No Hx Malignant Hyperthermia: No Family/Social History Smoking Status: Never Smoked Hx Alcohol Use: No Hx Substance Use: No Allergies/Home Meds Allergies/Adverse Reactions: Allergies No Known Allergies Allergy (Verified 06/21/18 14:45) Home Medications: Home Meds Medication Instructions Recorded Confirmed Baclofen [Lioresal] 10 mg PO BID 10/25/15 09/23/17 Losartan [Cozaar] 50 mg PO DAILY 10/25/15 09/23/17 Modafinil [Provigil] 200 mg PO BID 10/25/15 09/23/17 Amantadine [Amantadine 100 mg Cap] 100 mg PO BID 09/04/16 09/23/17 Diazepam [Valium] 10 mg PO HS 09/04/16 09/23/17 Gabapentin [Neurontin] 300 mg PO TID 09/04/16 09/23/17 Oxybutynin Chloride [Oxybutynin 10 mg PO DAILY 09/04/16 09/23/17 Chloride ER] Oxycodone HCl/Acetaminophen 1 tab PO Q8H PRN 09/04/16 09/23/17 [Percocet 10-325 mg Tablet] Ergocalciferol (Vitamin D2) 50,000 unit PO QWK 09/23/17 09/23/17 [Vitamin D2] Hydrocodone Bitartrate [Zohydro ER] 10 mg PO Q12 09/23/17 09/23/17 Physical Exam Vital Signs Temp Pulse Resp BP Pulse Ox 09/10/18 05:18 98.9 F 77 20 159/88 H 98 Medical Decision Making - RAD Interpretation Radiology Orders: 09/10/18 05:21 CHEST PORTABLE [RAD] Stat 09/10/18 05:42 HEAD W/O CONTRAST [CT] Stat - Medication Orders Current Medication Orders: Sodium Chloride (Sodium Chloride 0.9%) 1,000 mls @ 1,000 mls/hr IV .Q1H STA Stop: 09/10/18 06:40 Discontinued Medications Lorazepam (Ativan) 2 mg IVP ONCE ONE Stop: 09/10/18 05:41 Methylprednisolone (Solu-Medrol) 125 mg IVP STAT STA Stop: 09/10/18 05:42 Disposition/Present on Arrival - Present on Arrival History of DVT/PE: No History of Uncontrolled Diabetes: No Urinary Catheter: No - Disposition
--- NOTE | 2018-09-10 05:52 | ED PDOC ---
HPI: General Adult Time Seen by Provider: 09/10/18 05:07 Chief Complaint (Nursing): Pain, Chronic Chief Complaint (Provider): Pain, Chronic History Per: Patient, Family () History/Exam Limitations: clinical condition (uncooperative) Onset/Duration Of Symptoms: Days (x2) Additional Complaint(s): 53 y/o female with history of HTN was brought to the ED by [facility]. Patient is completely unwilling to provide history, provided history on behalf of patient. Per , patient has had x2 days of what they believe is a flare up of her multiple sclerosis. Patient follows with Dr. Ramírez for her multiple sclerosis. On arrival patient is yelling repeatedly with pain. states patient has been compliant with her medications. Denies any drug or alcohol use. Patient's interaction with provider alternates between refusing to answer and closing her eyes and opening her eyes and screaming and yelling. Past Medical History Reviewed: Historical Data, Nursing Documentation, Vital Signs Vital Signs: Last Vital Signs Temp 98.9 F 09/10/18 05:18 Pulse 77 09/10/18 05:18 Resp 20 09/10/18 05:18 BP 159/88 H 09/10/18 05:18 Pulse Ox 98 09/10/18 05:18 - Medical History PMH: Anemia, Anxiety, Depression, HTN, Multiple Sclerosis, Seizures, Chronic Pain Denies: Fractures, HIV, Chronic Kidney Disease - Surgical History Surgical History: No Surg Hx - Family History Family History: States: Unknown Family Hx - Social History Current smoker - smoking cessation education provided: No Alcohol: None Drugs: Denies - Immunization History Hx Tetanus Toxoid Vaccination: Yes (11/2016) Hx Influenza Vaccination: No Hx Pneumococcal Vaccination: Yes (09/2017) - Home Medications Home Medications: Ambulatory Orders Medication Instructions Recorded RX: Baclofen [Lioresal] 10 mg PO Q12 10/25/15 RX: Losartan [Cozaar] 50 mg PO DAILY 10/25/15 RX: Modafinil [Provigil] 200 mg PO DAILY 10/25/15 RX: Gabapentin [Neurontin] 300 mg PO Q8 09/04/16 RX: Oxycodone HCl/Acetaminophen 1 tab PO Q8H PRN 09/04/16 [Percocet 10-325 mg Tablet] RX: amLODIPine [Norvasc] 10 mg PO DAILY #30 tab 09/09/16 Dalfampridine [Ampyra] 10 mg PO Q12 09/10/18 Lidocaine 5% [Lidoderm] 1 patch TD DAILY 09/10/18 RX: Amantadine [Amantadine 100 mg 100 mg PO Q12 09/10/18 Cap] RX: Ibuprofen [Motrin Tab] 600 mg PO Q6H PRN 09/10/18 RX: Topiramate [Topamax] 50 mg PO Q12 09/10/18 - Allergies Allergies/Adverse Reactions: Allergies Allergy/AdvReac Type Severity Reaction Status Date / Time No Known Allergies Allergy Verified 06/21/18 14:45 Review of Systems ROS Statement: Except As Marked, All Systems Reviewed And Found Negative Musculoskeletal: Positive for: Other (Diffuse body pains) Physical Exam - Reviewed Nursing Documentation Reviewed: Yes Vital Signs Reviewed: Yes - Physical Exam Appears: Positive for: Uncomfortable Head Exam: Positive for: ATRAUMATIC, NORMAL INSPECTION, NORMOCEPHALIC Skin: Positive for: Normal Color, Warm, DRY Eye Exam: Positive for: EOMI, Normal appearance, PERRL ENT: Positive for: Normal ENT Inspection Neck: Positive for: Normal, Painless ROM Cardiovascular/Chest: Positive for: Regular Rate, Rhythm. Negative for: Murmur Respiratory: Positive for: Normal Breath Sounds. Negative for: Respiratory Distress Gastrointestinal/Abdominal: Positive for: Normal Exam, Soft. Negative for: Tenderness Back: Positive for: Normal Inspection Extremity: Positive for: Normal ROM. Negative for: Pedal Edema, Deformity Neurologic/Psych: Positive for: Alert, Oriented, Mood/Affect (unwilling to answer to provider). Negative for: Motor/Sensory Deficits, Facial Droop - Laboratory Results Result Diagrams: 09/10/18 05:45 09/10/18 05:45 - ECG O2 Sat by Pulse Oximetry: 98 (RA) Pulse Ox Interpretation: Normal Medical Decision Making Medical Decision Making: Time: 05:21 Initial Impression: 53 y/o with acute pain in setting of multiple sclerosis Initial Plan: * Labs * CT Head * CXR 07:00 Patient care endorsed to Dr. Hennessy pending labs, CT. and reevaluation. Scribe Attestation: Documented by Ayden Trujillo acting as a scribe for Jhon Gibbs MD. Provider Scribe Attestation: All medical record entries made by the Scribe were at my direction and personally dictated by me. I have reviewed the chart and agree that the record accurately reflects my personal performance of the history, physical exam, medical decision making, and the department course for this patient. I have also personally directed, reviewed, and agree with the discharge instructions and disposition. Disposition - Clinical Impression Clinical Impression: Multiple sclerosis exacerbation - Patient ED Disposition Is Patient to be Admitted: Transfer of Care - Disposition Disposition: Transfer of Care Disposition Time: 07:00 Condition: FAIR Patient Signed Over To: Andre Hennessy III
[2018-09-10 06:12] LABS: ALB/GLOB RATIO 1.5 (1.0-2.1); ALBUMIN 4.8 g/dL (3.5-5.0); ALT/SGPT 30 U/L (9-52); AST/SGOT 29 U/L (14-36); BLOOD UREA NITROGEN 21 mg/dl (7-17); CALCIUM 10.8 mg/dL (8.4-10.2); GFR NON-AFRICAN AMERICAN > 60
[2018-09-10 06:14] LABS: INR 1.1; PROTHROMBIN TIME 12.9 Seconds (9.8-13.1)
[2018-09-10 06:17] LABS: PARTIAL THROMBOPLASTIN TIME 30.8 Seconds (25.6-37.1)
[2018-09-10 06:46] LABS: ERYTHROCYTE SEDIMENTATION RATE 28 mm/hr (0-30)
[2018-09-10 06:49] LABS: BASO % 0.4 % (0.0-2.0); EOS % 0.2 % (0.0-4.0); HEMOGLOBIN 12.6 g/dL (12.0-16.0); LYMPH # 0.9 K/uL (1.0-4.3); LYMPH % 8.5 % (20.0-40.0); MEAN CELL VOLUME 89.8 fl (81.0-99.0); MEAN CORPUSCULAR HGB CONC 33.5 g/dL (33.0-37.0); MONO # 0.5 K/uL (0.0-0.8); MONO % 4.2 % (0.0-10.0); NEUT # 9.6 K/uL (1.8-7.0); NEUT % 86.7 % (50.0-75.0); NRBC % 0.1 % (0.0-0.0); PLATELET COUNT 305 K/uL (130-400); RBC 4.18 Mil/uL (3.80-5.20); RED CELL DISTRIBUTION WIDTH 12.9 % (11.5-14.5); WHITE BLOOD COUNT 11.1 K/uL (4.8-10.8)
--- NOTE | 2018-09-10 07:08 | ED PDOC ---
- Laboratory Results Result Diagrams: 09/10/18 05:45 09/10/18 05:45 Lab Results: PT 12.9 Seconds (9.8-13.1) 09/10/18 05:45 INR 1.1 09/10/18 05:45 APTT 30.8 Seconds (25.6-37.1) 09/10/18 05:45 Total Bilirubin 0.4 mg/dl (0.2-1.3) 09/10/18 05:45 AST 29 U/L (14-36) 09/10/18 05:45 ALT 30 U/L (9-52) 09/10/18 05:45 Alkaline Phosphatase 91 U/L (38-126) 09/10/18 05:45 Total Protein 8.0 G/DL (6.3-8.2) 09/10/18 05:45 Albumin 4.8 g/dL (3.5-5.0) 09/10/18 05:45 Globulin 3.2 gm/dL (2.2-3.9) 09/10/18 05:45 Albumin/Globulin Ratio 1.5 (1.0-2.1) 09/10/18 05:45 - ECG O2 Sat by Pulse Oximetry: 100 (RA) Pulse Ox Interpretation: Normal Medical Decision Making Medical Decision Makinyo female with history of multiple sclerosis, comes to ER for evaluation due to a "flare up" of multiple sclerosis. Patient signed out to me by Dr. Gibbs pending CT head, urinalysis, and reassessment. 0717 Urinalysis and UDS reviewed, no clinically singificant abnormalities noted. 0912 CT Head FINDINGS: HEMORRHAGE: No intracranial hemorrhage. BRAIN: Diffuse cerebral atrophy and white matter changes likely related to known multiple sclerosis are reiterated. No significant mass effect. No suspicious extra-axial collection identified. Posterior fossa contents are stable. VENTRICLES: Dilated ventricular system is reiterated including all ventricles, discordant to the level of increased sulcation throughout the cerebrum, and is not changed significantly in the interval. Given history of MS, central atrophy is a possibility though an element of normal pressure hydrocephalus remains difficult to completely exclude. Clinically correlate further. CALVARIUM: Unremarkable. PARANASAL SINUSES: Unremarkable as visualized. No significant inflammatory changes. MASTOID AIR CELLS: Unremarkable as visualized. No inflammatory changes. OTHER FINDINGS: None. IMPRESSION: Stable appearing head CT without intracranial hemorrhage or mass-effect. Diffuse white matter changes are once again identified in this patient with a history of multiple sclerosis, and may play a role in what may represent central atrophy diffuse ventricular dilatation could reflect normal pressure hydrocephalus well. Clinically correlate further. No definite acute interval findings. ------- UA and utox unremarkable 9am patient remains somnolent likely from ativan given for agitation earlier. Admit hospitalist covering Dr Alvarez for workup and stabilization. Scribe Attestation: Documented by iDvya Box acting as a scribe for Andre Hennessy DO. Provider Attestation: All medical record entries made by the Scribe were at my direction and personally dictated by me. I have reviewed the chart and agree that the record accurately reflects my personal performance of the history, physical exam, medical decision making, and the department course for this patient. I have also personally directed, reviewed, and agree with the discharge instructions and di sposition. Disposition - Clinical Impression Clinical Impression: Multiple sclerosis exacerbation - POA Present On Arrival: None - Disposition Disposition: Admitted as In-Patient Disposition Time: 09:00 Condition: FAIR Forms: [employer] ([place]ian)
[2018-09-10 07:09] LABS: URINE BILIRUBIN NEGATIVE (NEGATIVE); URINE BLOOD NEGATIVE (NEGATIVE); URINE CLARITY CLOUDY (Clear); URINE COLOR YELLOW (YELLOW); URINE GLUCOSE (UA) NEG (NEGATIVE); URINE LEUKOCYTE ESTERASE NEG Leu/uL (Negative); URINE PROTEIN NEGATIVE (NEGATIVE); URINE UROBILINOGEN 0.2-1.0 mg/dL (0.2-1.0)
[2018-09-10 07:11] LABS: BARBITURATES, UR NEGATIVE (NEGATIVE); BENZODIAZEPINES, UR NEGATIVE (NEGATIVE); OPIATES, UR NEGATIVE (NEGATIVE); PHENCYCLIDINE, UR NEGATIVE (NEGATIVE)
--- NOTE | 2018-09-10 08:50 | CARD ---
APPROVED REPORT Date of service: 09/10/2018 EKG Measurement Heart [id number] <Conclusion> Normal sinus rhythm Prolonged QT Abnormal ECG
--- NOTE | 2018-09-10 09:15 | CT ---
Date of service: 09/10/2018 PROCEDURE: CT HEAD WITHOUT CONTRAST. HISTORY: ams hx MS COMPARISON: Unenhanced head CT 09/23/2017. TECHNIQUE: Axial computed tomography images were obtained through the head/brain without intravenous contrast. Radiation dose: Total exam DLP = 890.99 mGy-cm. This CT exam was performed using one or more of the following dose reduction techniques: Automated exposure control, adjustment of the mA and/or kV according to patient size, and/or use of iterative reconstruction technique. FINDINGS: HEMORRHAGE: No intracranial hemorrhage. BRAIN: Diffuse cerebral atrophy and white matter changes likely related to known multiple sclerosis are reiterated. No significant mass effect. No suspicious extra-axial collection identified. Posterior fossa contents are stable. VENTRICLES: Dilated ventricular system is reiterated including all ventricles, discordant to the level of increased sulcation throughout the cerebrum, and is not changed significantly in the interval. Given history of MS, central atrophy is a possibility though an element of normal pressure hydrocephalus remains difficult to completely exclude. Clinically correlate further. CALVARIUM: Unremarkable. PARANASAL SINUSES: Unremarkable as visualized. No significant inflammatory changes. MASTOID AIR CELLS: Unremarkable as visualized. No inflammatory changes. OTHER FINDINGS: None. IMPRESSION: Stable appearing head CT without intracranial hemorrhage or mass-effect. Diffuse white matter changes are once again identified in this patient with a history of multiple sclerosis, and may play a role in what may represent central atrophy diffuse ventricular dilatation could reflect normal pressure hydrocephalus well. Clinically correlate further. No definite acute interval findings.
[2018-09-10 11:05] LABS: BASOPHIL 1 % (0-2); LYMPHOCYTE 8 % (20-50); MONOCYTE 3 % (0-10); NEUTROPHIL 88 % (42-75); PLATELET ESTIMATE NORMAL (NORMAL); TOTAL CELLS COUNTED 100
--- NOTE | 2018-09-10 11:28 | CP.PCM.HP ---
<RussBernardo - Last Filed: 09/10/18 12:27> History of Present Illness - History of Present Illness History of Present Illness: 53 y/o F with a PMHx of HTN and multiple sclerosis was brought to ED by due to possible multiple sclerosis exacerbation. At the time of examination, pt was somnolent and unable to answer question. No family member or book author by bedside. History taken from ED notes and chart review. . Pt received Ativan 2mg and Solu-Medrol 125mg at ED. PMD: Dr Alvarez PMHx: HTN, Multiple Sclerosis, anxiety and depression ED Course: --Vital signs stable --CBC unremarkable except for mild leukocytosis, WBC 11. --CMP unremarkable except for mild hypercalcemia. --U/A, UDS anc coags were unremarkable --Head CT: stable. See full report Present on Admission - Present on Admission Any Indicators Present on Admission: No Review of Systems - Review of Systems Systems not reviewed;Unavailable: Acuity of Condition, Altered Mental Status Past Patient History - Past Medical History & Family History Past Medical History?: Yes - Past Social History Alcohol: None Drugs: Denies - CARDIAC Hx Hypertension: Yes - PULMONARY Hx Respiratory Disorders: No - NEUROLOGICAL Hx Multiple Sclerosis: Yes Hx Seizures: Yes - HEENT Hx HEENT Problems: Yes Other/Comment: wears eyeglasses - RENAL Hx Chronic Kidney Disease: No - ENDOCRINE/METABOLIC Hx Endocrine Disorders: No - HEMATOLOGICAL/ONCOLOGICAL Hx Anemia: Yes Hx Human Immunodeficiency Virus (HIV): No - INTEGUMENTARY Hx Dermatological Problems: No - MUSCULOSKELETAL/RHEUMATOLOGICAL Hx Fractures: No - GASTROINTESTINAL Hx Gastrointestinal Disorders: No - GENITOURINARY/GYNECOLOGICAL Hx Genitourinary Disorders: Yes Other/Comment: neurogenic bladder - PSYCHIATRIC Hx Anxiety: Yes Hx Depression: Yes - SURGICAL HISTORY Other/Comment: Removal of ovarian cyst - ANESTHESIA Hx Anesthesia: Yes Hx Anesthesia Reactions: No Hx Malignant Hyperthermia: No Meds Allergies/Adverse Reactions: Allergies Allergy/AdvReac Type Severity Reaction Status Date / Time No Known Allergies Allergy Verified 06/21/18 14:45 Physical Exam - Constitutional Appears: Other (Somnolent) - Head Exam Head Exam: ATRAUMATIC, NORMAL INSPECTION - Eye Exam Eye Exam: PERRL - ENT Exam ENT Exam: Mucous Membranes Moist - Neck Exam Neck exam: Positive for: Normal Inspection - Respiratory Exam Respiratory Exam: NORMAL BREATHING PATTERN. absent: Rhonchi, Wheezes, Respiratory Distress - Cardiovascular Exam Cardiovascular Exam: REGULAR RHYTHM, +S1, +S2 - GI/Abdominal Exam GI & Abdominal Exam: Normal Bowel Sounds, Soft. absent: Distended, Tenderness - Neurological Exam Neurological exam: Altered Results - Vital Signs Recent Vital Signs: Last Vital Signs Temp 98.9 F 09/10/18 05:18 Pulse 75 09/10/18 08:33 Resp 18 09/10/18 08:33 BP 119/76 09/10/18 08:33 Pulse Ox 100 09/10/18 09:37 - Labs Result Diagrams: 09/10/18 05:45 09/10/18 05:45 Labs: Laboratory Results - last 24 hr 09/10/18 09/10/18 09/10/18 05:15 05:45 05:45 WBC 11.1 H D RBC 4.18 Hgb 12.6 Hct 37.5 MCV 89.8 D MCH 30.0 MCHC 33.5 RDW 12.9 Plt Count 305 MPV 8.0 Neut % (Auto) 86.7 H Lymph % (Auto) 8.5 L [place] % (Auto) 4.2 Eos % (Auto) 0.2 Baso % (Auto) 0.4 Neut # (Auto) 9.6 H Lymph # (Auto) 0.9 L [place] # (Auto) 0.5 Eos # (Auto) 0.0 Baso # (Auto) 0.0 Neutrophils % (Manual) 88 H Lymphocytes % (Manual) 8 L Monocytes % (Manual) 3 Basophils % (Manual) 1 Platelet Estimate Normal RBC Morphology Normal ESR 28 PT INR APTT Sodium 141 Potassium 4.1 Chloride 101 Carbon Dioxide 26 Anion Gap 18 BUN 21 H Creatinine 0.8 Est GFR ( Amer) > 60 Est GFR (Non-Af Amer) > 60 POC Glucose (mg/dL) 165 H Random Glucose 208 H Lactic Acid Calcium 10.8 H Total Bilirubin 0.4 AST 29 ALT 30 Alkaline Phosphatase 91 Total Creatine Kinase 54 Total Protein 8.0 Albumin 4.8 Globulin 3.2 Albumin/Globulin Ratio 1.5 Urine Color Urine Clarity Urine pH Ur Specific [place] Urine Protein Urine Glucose (UA) Urine Ketones Urine Blood Urine Nitrate Urine Bilirubin Urine Urobilinogen Ur Leukocyte Esterase Urine RBC (Auto) Urine Microscopic WBC Urine Opiates Screen Urine Methadone Screen Ur Barbiturates Screen Ur Phencyclidine Scrn Ur Amphetamines Screen U Benzodiazepines Scrn U Oth Cocaine Metabols U Cannabinoids Screen Alcohol, Quantitative < 10 09/10/18 09/10/18 09/10/18 05:45 05:45 06:30 WBC RBC Hgb Hct MCV MCH MCHC RDW Plt Count MPV Neut % (Auto) Lymph % (Auto) [place] % (Auto) Eos % (Auto) Baso % (Auto) Neut # (Auto) Lymph # (Auto) [place] # (Auto) Eos # (Auto) Baso # (Auto) Neutrophils % (Manual) Lymphocytes % (Manual) Monocytes % (Manual) Basophils % (Manual) Platelet Estimate RBC Morphology ESR PT 12.9 INR 1.1 APTT 30.8 Sodium Potassium Chloride Carbon Dioxide Anion Gap BUN Creatinine Est GFR ( Amer) Est GFR (Non-Af Amer) POC Glucose (mg/dL) Random Glucose Lactic Acid 1.7 Calcium Total Bilirubin AST ALT Alkaline Phosphatase Total Creatine Kinase Total Protein Albumin Globulin Albumin/Globulin Ratio Urine Color Urine Clarity Urine pH Ur Specific [place] Urine Protein Urine Glucose (UA) Urine Ketones Urine Blood Urine Nitrate Urine Bilirubin Urine Urobilinogen Ur Leukocyte Esterase Urine RBC (Auto) Urine Microscopic WBC Urine Opiates Screen Negative Urine Methadone Screen Negative Ur Barbiturates Screen Negative Ur Phencyclidine Scrn Negative Ur Amphetamines Screen Negative U Benzodiazepines Scrn Negative U Oth Cocaine Metabols Negative U Cannabinoids Screen Negative Alcohol, Quantitative 09/10/18 06:30 WBC RBC Hgb Hct MCV MCH MCHC RDW Plt Count MPV Neut % (Auto) Lymph % (Auto) [place] % (Auto) Eos % (Auto) Baso % (Auto) Neut # (Auto) Lymph # (Auto) [place] # (Auto) Eos # (Auto) Baso # (Auto) Neutrophils % (Manual) Lymphocytes % (Manual) Monocytes % (Manual) Basophils % (Manual) Platelet Estimate RBC Morphology ESR PT INR APTT Sodium Potassium Chloride Carbon Dioxide Anion Gap BUN Creatinine Est GFR ( Amer) Est GFR (Non-Af Amer) POC Glucose (mg/dL) Random Glucose Lactic Acid Calcium Total Bilirubin AST ALT Alkaline Phosphatase Total Creatine Kinase Total Protein Albumin Globulin Albumin/Globulin Ratio Urine Color Yellow Urine Clarity Cloudy Urine pH 7.0 Ur Specific [place] 1.015 Urine Protein Negative Urine Glucose (UA) Neg Urine Ketones Negative Urine Blood Negative Urine Nitrate Negative Urine Bilirubin Negative Urine Urobilinogen 0.2-1.0 Ur Leukocyte Esterase Neg Urine RBC (Auto) 1 Urine Microscopic WBC 1 Urine Opiates Screen Urine Methadone Screen Ur Barbiturates Screen Ur Phencyclidine Scrn Ur Amphetamines Screen U Benzodiazepines Scrn U Oth Cocaine Metabols U Cannabinoids Screen Alcohol, Quantitative Assessment & Plan - Assessment and Plan (Free Text) Assessment: 53 y/o F with a PMHx of HTN, Multiple Sclerosis, anxiety and depression was adm itted for evaluation and management of multiple sclerosis exacerbation. PLAN: >Multiple Sclerosis Exacerbation --Somnolent. --S/P Solu-Medrol 125mg IV --Afebrile, hemodynamically stable --Will perform neurological examination once pt is awake. --Home meds resumed with exception of meds that can exacerbate somnolence. >Essential HTN --Hemodynamically stable --Home meds resumed >Anxiety/Depression --Hold home meds that can exacerbate somnolence. >DVT Prophylaxis --SCDs --Lovenox 40mg SC daily. Case discussed with Faviola Jacinto PGY-2. - Date & Time Date: 09/10/18 Time: 11:50 <Faviola Glaser - Last Filed: 09/13/18 15:29> Results - Vital Signs Recent Vital Signs: Last Vital Signs Temp 98.4 F 09/13/18 12:45 Pulse 88 09/13/18 12:45 Resp 18 09/13/18 12:45 BP 155/89 H 09/13/18 12:45 Pulse Ox 97 09/13/18 12:45 - Labs Result Diagrams: 09/12/18 04:30 09/12/18 04:30 Attending/Attestation - Attestation I have personally seen and examined this patient.: Yes I have fully participated in the care of the patient.: Yes I have reviewed all pertinent clinical information: Yes Notes (Text): 09/13/18 15:29 Agree with findings and plan as above.
--- NOTE | 2018-09-10 12:45 | RAD ---
Date of service: 09/10/2018 HISTORY: admit COMPARISON: 09/23/2017. FINDINGS: LUNGS: No active pulmonary disease. PLEURA: No significant pleural effusion identified, no pneumothorax apparent. CARDIOVASCULAR: No atherosclerotic calcification present Normal. OSSEOUS STRUCTURES: No significant abnormalities. VISUALIZED UPPER ABDOMEN: Normal. OTHER FINDINGS: None. IMPRESSION: No active disease. No significant interval change compared to the prior examination(s).
[2018-09-10 16:25] VITALS: BMI 20.1
[2018-09-10] MEDS ORDERED: methylPREDNISolone 500 MG in Sodium Chloride 0.9% 100 ML IV ONE (18:00)
[2018-09-11 05:33] LABS: HEMOGLOBIN 11.3 g/dL (12.0-16.0); MEAN CELL VOLUME 89.7 fl (81.0-99.0); MEAN CORPUSCULAR HEMOGLOBIN 29.8 pg (27.0-31.0); MEAN CORPUSCULAR HGB CONC 33.2 g/dL (33.0-37.0); RBC 3.8 Mil/uL (3.80-5.20); RED CELL DISTRIBUTION WIDTH 12.6 % (11.5-14.5); WHITE BLOOD COUNT 14.1 K/uL (4.8-10.8)
[2018-09-11 05:45] LABS: BLOOD UREA NITROGEN 19 mg/dl (7-17); CALCIUM 10.3 mg/dL (8.4-10.2); GFR NON-AFRICAN AMERICAN > 60
[2018-09-11] MEDS: Enoxaparin 40 mg Syringe SC SCH (08:56)
--- NOTE | 2018-09-11 12:59 | CP.PCM.PN ---
<RussBernardo - Last Filed: 09/11/18 14:27> Subjective - Date & Time of Evaluation Date of Evaluation: 09/11/18 Time of Evaluation: 10:00 - Subjective Subjective: 53 y/o F was seen and examined by bedside. Pt is awake and alert, speaking fluently, reports feeling better but reports mild headache. Pt reports she feel at home and that is why she is here. Pt cannot recall what occurred at ED. Pt denies visual disturbances, chest pain, SOB, nausea, vomiting, weakness or paresthesia. --As per pt, she cannot recall if she is adherent to her medications, because she keep medications at 2 different places. ->Neurologist, Dr Ramírez, was contacted and confirmed her baseline. Dr Ramírez recommended 3 days of 1gr Steroids and d/c her with physical therapy. Objective - Vital Signs/Intake and Output Vital Signs (last 24 hours): Temp Pulse Resp BP Pulse Ox 98.5 F 104 H 18 138/79 98 09/11/18 11:49 09/11/18 11:49 09/11/18 11:49 09/11/18 11:49 09/11/18 11:49 - Medications Medications: Current Medications Amantadine HCl (Amantadine 100 Mg Cap) 100 mg PO Q12 [facility] Last Admin: 09/11/18 08:56 Dose: 100 mg Amlodipine Besylate (Norvasc) 10 mg PO DAILY [facility] Last Admin: 09/11/18 08:57 Dose: 10 mg Enoxaparin Sodium (Lovenox) 40 mg SC DAILY [facility]; Protocol Last Admin: 09/11/18 08:56 Dose: 40 mg Home Med (Dalfampridine [Ampyra]) 10 mg PO Q12 [facility] Methylprednisolone 1 gm/ (Sodium Chloride) 250 mls @ 62.5 mls/hr IV DAILY [facility] Ibuprofen (Motrin Tab) 600 mg PO Q6H PRN PRN Reason: Pain, moderate (4-7) Last Admin: 09/11/18 04:15 Dose: 600 mg Losartan Potassium (Cozaar) 50 mg PO DAILY [facility] Last Admin: 09/11/18 08:56 Dose: 50 mg Modafinil (Provigil) 200 mg PO DAILY [facility] Last Admin: 09/11/18 10:12 Dose: 200 mg - Labs Labs: 09/11/18 04:55 02/22/19 04:55 PT 12.9 Seconds (9.8-13.1) 09/10/18 05:45 INR 1.1 09/10/18 05:45 APTT 30.8 Seconds (25.6-37.1) 09/10/18 05:45 - Constitutional Appears: Well, No Acute Distress - Head Exam Head Exam: ATRAUMATIC, NORMAL INSPECTION - Eye Exam Eye Exam: EOMI, PERRL - ENT Exam ENT Exam: Mucous Membranes Moist - Neck Exam Neck Exam: Full ROM, Normal Inspection - Respiratory Exam Respiratory Exam: NORMAL BREATHING PATTERN. absent: Rales, Rhonchi, Wheezes - Cardiovascular Exam Cardiovascular Exam: REGULAR RHYTHM, +S1, +S2 - GI/Abdominal Exam GI & Abdominal Exam: Soft. absent: Guarding, Rigid, Tenderness - Extremities Exam Extremities Exam: Normal Capillary Refill. absent: Calf Tenderness, Pedal Edema, Tenderness - Neurological Exam Neurological Exam: Alert, Awake, Oriented x3 Neuro motor strength exam: Left Upper Extremity: 5, Right Upper Extremity: 5, Left Lower Extremity: 4, Right Lower Extremity: 5 Additional comments: swaying gait. SILT on b/l arms and legs. Vibration sensation decreased on left first metatarsal. DTR's are +1 on b/l patellar and Achilles. - Psychiatric Exam Psychiatric exam: Normal Affect Assessment and Plan - Assessment and Plan (Free Text) Assessment: 53 y/o F with a PMHx of HTN, Multiple Sclerosis, anxiety and depression was admitted for evaluation and management of multiple sclerosis exacerbation. PLAN: >Multiple Sclerosis Exacerbation --Awake and alert. Afebrile, hemodynamically stable --Head CT: stable and normal pressure hydrocephalus. --Dr Ramírez, neurologist. --IV Solu-Medrol 1gr daily for 3 days. --Physical therapy evaluation ordered. --Home meds resumed >Essential HTN --Hemodynamically stable --Home meds resumed >DVT Prophylaxis --SCDs --Lovenox 40mg SC daily. Case discussed with Faviola Jacinto PGY-2. <Faviola Glaser - Last Filed: 09/13/18 15:28> Objective - Vital Signs/Intake and Output Vital Signs (last 24 hours): Temp Pulse Resp BP Pulse Ox 98.4 F 88 18 155/89 H 97 09/13/18 12:45 09/13/18 12:45 09/13/18 12:45 09/13/18 12:45 09/13/18 12:45 - Medications Medications: Current Medications Amantadine HCl (Amantadine 100 Mg Cap) 100 mg PO Q12 [facility] Last Admin: 09/13/18 08:08 Dose: 100 mg Amlodipine Besylate (Norvasc) 10 mg PO DAILY [facility] Last Admin: 09/13/18 08:08 Dose: 10 mg Enoxaparin Sodium (Lovenox) 40 mg SC DAILY [facility]; Protocol Last Admin: 09/13/18 08:09 Dose: 40 mg Home Med (Dalfampridine [Ampyra]) 10 mg PO Q12 [facility] Methylprednisolone 1 gm/ (Sodium Chloride) 250 mls @ 62.5 mls/hr IV DAILY [facility] Last Admin: 09/13/18 09:58 Dose: 62.5 mls/hr Ibuprofen (Motrin Tab) 600 mg PO Q6H PRN PRN Reason: Pain, moderate (4-7) Last Admin: 09/13/18 08:09 Dose: 600 mg Losartan Potassium (Cozaar) 50 mg PO DAILY [facility] Last Admin: 09/13/18 08:08 Dose: 50 mg Modafinil (Provigil) 200 mg PO DAILY [facility] Last Admin: 09/13/18 09:58 Dose: 200 mg Oxycodone/Acetaminophen (Percocet 5/325 Mg Tab) 2 tab PO Q8 PRN PRN Reason: Pain, severe (8-10) Stop: 09/15/18 04:20 Last Admin: 09/12/18 04:25 Dose: 2 tab - Labs Labs: 09/12/18 04:30 09/12/18 04:30 PT 12.9 Seconds (9.8-13.1) 09/10/18 05:45 INR 1.1 09/10/18 05:45 APTT 30.8 Seconds (25.6-37.1) 09/10/18 05:45 Attending/Attestation - Attestation I have personally seen and examined this patient.: Yes I have fully participated in the care of the patient.: Yes I have reviewed all pertinent clinical information, including history, physical exam and plan: Yes Notes (Text): 09/13/18 15:28 Agree with findings and plan as above.
[2018-09-11] MEDS: methylPREDNISolone 1 GM in Sodium Chloride 0.9% 250 ML IV SCH (14:31)
[2018-09-12] MEDS ORDERED: Patient's Own Med (Oxycodone Hcl/Acetaminophen [Percocet 10-325 Mg Tablet] 1 TAB) PO PRN (04:05)
[2018-09-12] MEDS ORDERED: Oxycodone/Acetaminophen 5/325 mg Tab PO PRN (04:19)
[2018-09-12 06:01] LABS: HEMOGLOBIN 11.2 g/dL (12.0-16.0); MEAN CELL VOLUME 88.9 fl (81.0-99.0); MEAN CORPUSCULAR HEMOGLOBIN 29.9 pg (27.0-31.0); MEAN CORPUSCULAR HGB CONC 33.6 g/dL (33.0-37.0); RBC 3.76 Mil/uL (3.80-5.20); WHITE BLOOD COUNT 14.4 K/uL (4.8-10.8)
[2018-09-12 06:13] LABS: BLOOD UREA NITROGEN 19 mg/dl (7-17); CALCIUM 9.9 mg/dL (8.4-10.2); GFR NON-AFRICAN AMERICAN > 60
[2018-09-12] MEDS: Enoxaparin 40 mg Syringe SC SCH (09:00)
[2018-09-12] MEDS: methylPREDNISolone 1 GM in Sodium Chloride 0.9% 250 ML IV SCH (09:01)
--- NOTE | 2018-09-12 12:42 | CP.PCM.PN ---
<Bernardo Solano - Last Filed: 09/12/18 15:44> Subjective - Date & Time of Evaluation Date of Evaluation: 09/12/18 Time of Evaluation: 09:45 - Subjective Subjective: 53 y/o F was seen and examined by bedside. Pt reports feeling well, no headache now. Pt afebrile, tolerating PO. Pt denies visual disturbances, chest pain, SOB, nausea, vomiting, weakness or paresthesia. --Pt complained of moderate headache last night. Percocet, her home med, was resumed. Objective - Vital Signs/Intake and Output Vital Signs (last 24 hours): Temp Pulse Resp BP Pulse Ox 98.3 F 88 18 137/76 96 09/12/18 12:23 09/12/18 12:23 09/12/18 12:23 09/12/18 12:23 09/12/18 12:23 - Medications Medications: Current Medications Amantadine HCl (Amantadine 100 Mg Cap) 100 mg PO Q12 [facility] Last Admin: 09/12/18 08:59 Dose: 100 mg Amlodipine Besylate (Norvasc) 10 mg PO DAILY [facility] Last Admin: 09/12/18 09:00 Dose: 10 mg Enoxaparin Sodium (Lovenox) 40 mg SC DAILY [facility]; Protocol Last Admin: 09/12/18 09:00 Dose: 40 mg Home Med (Dalfampridine [Ampyra]) 10 mg PO Q12 [facility] Methylprednisolone 1 gm/ (Sodium Chloride) 250 mls @ 62.5 mls/hr IV DAILY [facility] Last Admin: 09/12/18 09:01 Dose: 62.5 mls/hr Ibuprofen (Motrin Tab) 600 mg PO Q6H PRN PRN Reason: Pain, moderate (4-7) Last Admin: 09/11/18 12:49 Dose: 600 mg Losartan Potassium (Cozaar) 50 mg PO DAILY [facility] Last Admin: 09/12/18 09:00 Dose: 50 mg Modafinil (Provigil) 200 mg PO DAILY [facility] Last Admin: 09/12/18 09:48 Dose: 200 mg Oxycodone/Acetaminophen (Percocet 5/325 Mg Tab) 2 tab PO Q8 PRN PRN Reason: Pain, severe (8-10) Stop: 09/15/18 04:20 Last Admin: 09/12/18 04:25 Dose: 2 tab - Labs Labs: 09/12/18 04:30 09/12/18 04:30 PT 12.9 Seconds (9.8-13.1) 09/10/18 05:45 INR 1.1 09/10/18 05:45 APTT 30.8 Seconds (25.6-37.1) 09/10/18 05:45 - Constitutional Appears: No Acute Distress - Head Exam Head Exam: ATRAUMATIC, NORMAL INSPECTION - Eye Exam Eye Exam: EOMI, Normal appearance - ENT Exam ENT Exam: Mucous Membranes Moist - Neck Exam Neck Exam: Full ROM, Normal Inspection - Respiratory Exam Respiratory Exam: NORMAL BREATHING PATTERN. absent: Rhonchi, Wheezes, Respiratory Distress - Cardiovascular Exam Cardiovascular Exam: REGULAR RHYTHM, +S1, +S2 - GI/Abdominal Exam GI & Abdominal Exam: Soft. absent: Firm, Guarding, Tenderness - Extremities Exam Extremities Exam: Normal Inspection. absent: Calf Tenderness, Pedal Edema - Neurological Exam Neurological Exam: Alert, Awake, Oriented x3 Assessment and Plan - Assessment and Plan (Free Text) Assessment: 53 y/o F with a PMHx of HTN, Multiple Sclerosis, anxiety and depression was a dmitted for evaluation and management of multiple sclerosis exacerbation. PLAN: >Multiple Sclerosis Exacerbation --Awake and alert. Afebrile, hemodynamically stable --Dr Ramírez, neurologist. --Day 2 of IV Solu-Medrol 1gr daily. --Physical therapy evaluation, recommendations appreciated. --Home meds resumed >Essential HTN --Hemodynamically stable --Home meds resumed >DVT Prophylaxis --SCDs --Lovenox 40mg SC daily. Case discussed with Dr Rolando Solano PGY-2. <Ashley Marshall - Last Filed: 09/12/18 17:09> Objective - Vital Signs/Intake and Output Vital Signs (last 24 hours): Temp Pulse Resp BP Pulse Ox 97.6 F 103 H 18 105/74 94 L 09/12/18 16:36 09/12/18 16:36 09/12/18 16:36 09/12/18 16:36 09/12/18 16:36 - Medications Medications: Current Medications Amantadine HCl (Amantadine 100 Mg Cap) 100 mg PO Q12 [facility] Last Admin: 09/12/18 08:59 Dose: 100 mg Amlodipine Besylate (Norvasc) 10 mg PO DAILY [facility] Last Admin: 09/12/18 09:00 Dose: 10 mg Enoxaparin Sodium (Lovenox) 40 mg SC DAILY [facility]; Protocol Last Admin: 09/12/18 09:00 Dose: 40 mg Home Med (Dalfampridine [Ampyra]) 10 mg PO Q12 [facility] Methylprednisolone 1 gm/ (Sodium Chloride) 250 mls @ 62.5 mls/hr IV DAILY [facility] Last Admin: 09/12/18 09:01 Dose: 62.5 mls/hr Ibuprofen (Motrin Tab) 600 mg PO Q6H PRN PRN Reason: Pain, moderate (4-7) Last Admin: 09/11/18 12:49 Dose: 600 mg Losartan Potassium (Cozaar) 50 mg PO DAILY [facility] Last Admin: 09/12/18 09:00 Dose: 50 mg Modafinil (Provigil) 200 mg PO DAILY [facility] Last Admin: 09/12/18 09:48 Dose: 200 mg Oxycodone/Acetaminophen (Percocet 5/325 Mg Tab) 2 tab PO Q8 PRN PRN Reason: Pain, severe (8-10) Stop: 09/15/18 04:20 Last Admin: 09/12/18 04:25 Dose: 2 tab - Labs Labs: 09/12/18 04:30 09/12/18 04:30 PT 12.9 Seconds (9.8-13.1) 09/10/18 05:45 INR 1.1 09/10/18 05:45 APTT 30.8 Seconds (25.6-37.1) 09/10/18 05:45 Attending/Attestation - Attestation I have personally seen and examined this patient.: Yes I have fully participated in the care of the patient.: Yes I have reviewed all pertinent clinical information, including history, physical exam and plan: Yes Notes (Text): Multiple Sclerosis exacerbation - cont IV Solumedrol 1 gram IV x 3 days as per Neurology recommendation - will d/c pt in am after IV Solumedrol dose if she continbues to improve - Physical therapy consulted - rec Home PT , we will arrange with Case Mgt - cont Provigil, Amantadine and Ampyra - ff up with Dr Anselmi jade HTN - cont Norvasc, and Losartan
[2018-09-13] MEDS: Enoxaparin 40 mg Syringe SC SCH (08:09)
--- NOTE | 2018-09-13 08:43 | CP.PCM.DIS ---
<Jennifer Malone - Last Filed: 09/13/18 13:24> Provider - Provider Date of Admission: 09/12/18 08:07 Attending physician: Igor Alvarez MD Primary care physician: Dr. Alvarez Time Spent in preparation of Discharge (in minutes): 15 Diagnosis - Discharge Diagnosis (1) Multiple sclerosis exacerbation Status: Acute Priority: High Comment: Pt ambulating well doing PT. Blurry vision resolved,. Denies Urinary incontinence or Weakness. Dr. Ramírez aware- pt will follow up with Neuro outpt. Pt will get MRI outpt (2) Normal pressure hydrocephalus Status: Acute Comment: Pt ambulating well doing PT. Urinary incontinence and blurry vision resolved. Dr. Ramírez- neuro aware of CT findings NPH, recommendenations are for pt to continue PT and follow up with him outpt. Explained in detail NPH to pt, pt aware and in agreement she will follow up with Neuro (3) Hypertension Status: Chronic Priority: Medium Comment: chronic, stable. c/w home meds (4) Anxiety and depression Status: Acute Comment: chronic. c/w home meds Hospital Course - Lab Results Lab Results: Most Recent Lab Values WBC 14.4 K/uL (4.8-10.8) H 09/12/18 04:30 RBC 3.76 Mil/uL (3.80-5.20) L 09/12/18 04:30 Hgb 11.2 g/dL (12.0-16.0) L 09/12/18 04:30 Hct 33.4 % (34.0-47.0) L 09/12/18 04:30 MCV 88.9 fl (81.0-99.0) 09/12/18 04:30 MCH 29.9 pg (27.0-31.0) 09/12/18 04:30 MCHC 33.6 g/dL (33.0-37.0) 09/12/18 04:30 RDW 13.0 % (11.5-14.5) 09/12/18 04:30 Plt Count 246 K/uL (130-400) 09/12/18 04:30 MPV 8.0 fl (7.2-11.7) 09/10/18 05:45 Neut % (Auto) 86.7 % (50.0-75.0) H 09/10/18 05:45 Lymph % (Auto) 8.5 % (20.0-40.0) L 09/10/18 05:45 Glynn % (Auto) 4.2 % (0.0-10.0) 09/10/18 05:45 Eos % (Auto) 0.2 % (0.0-4.0) 09/10/18 05:45 Baso % (Auto) 0.4 % (0.0-2.0) 09/10/18 05:45 Neut # (Auto) 9.6 K/uL (1.8-7.0) H 09/10/18 05:45 Lymph # (Auto) 0.9 K/uL (1.0-4.3) L 09/10/18 05:45 Glynn # (Auto) 0.5 K/uL (0.0-0.8) 09/10/18 05:45 Eos # (Auto) 0.0 K/uL (0.0-0.7) 09/10/18 05:45 Baso # (Auto) 0.0 K/uL (0.0-0.2) 09/10/18 05:45 Neutrophils % (Manual) 88 % (42-75) H 09/10/18 05:45 Lymphocytes % (Manual) 8 % (20-50) L 09/10/18 05:45 Monocytes % (Manual) 3 % (0-10) 09/10/18 05:45 Basophils % (Manual) 1 % (0-2) 09/10/18 05:45 Platelet Estimate Normal (NORMAL) 09/10/18 05:45 RBC Morphology Normal (NORMAL) 09/10/18 05:45 ESR 28 mm/hr (0-30) 09/10/18 05:45 PT 12.9 Seconds (9.8-13.1) 09/10/18 05:45 INR 1.1 09/10/18 05:45 APTT 30.8 Seconds (25.6-37.1) 09/10/18 05:45 Sodium 140 mmol/l (132-148) 09/12/18 04:30 Potassium 3.7 MMOL/L (3.6-5.0) 09/12/18 04:30 Chloride 101 mmol/L (98-107) 09/12/18 04:30 Carbon Dioxide 26 mmol/L (22-30) 09/12/18 04:30 Anion Gap 17 (10-20) 09/12/18 04:30 BUN 19 mg/dl (7-17) H 09/12/18 04:30 Creatinine 0.6 mg/dl (0.7-1.2) L 09/12/18 04:30 Est GFR ( Amer) > 60 09/12/18 04:30 Est GFR (Non-Af Amer) > 60 09/12/18 04:30 POC Glucose (mg/dL) 174 mg/dL (65-110) H 09/10/18 12:39 Random Glucose 157 mg/dL (65-105) H 09/12/18 04:30 Lactic Acid 1.7 mmol/L (0.7-2.1) 09/10/18 05:45 Calcium 9.9 mg/dL (8.4-10.2) 09/12/18 04:30 Total Bilirubin 0.4 mg/dl (0.2-1.3) 09/10/18 05:45 AST 29 U/L (14-36) 09/10/18 05:45 ALT 30 U/L (9-52) 09/10/18 05:45 Alkaline Phosphatase 91 U/L (38-126) 09/10/18 05:45 Total Creatine Kinase 54 U/L (30-135) 09/10/18 05:45 Total Protein 8.0 G/DL (6.3-8.2) 09/10/18 05:45 Albumin 4.8 g/dL (3.5-5.0) 09/10/18 05:45 Globulin 3.2 gm/dL (2.2-3.9) 09/10/18 05:45 Albumin/Globulin Ratio 1.5 (1.0-2.1) 09/10/18 05:45 Urine Color Yellow (YELLOW) 09/10/18 06:30 Urine Clarity Cloudy (Clear) 09/10/18 06:30 Urine pH 7.0 (5.0-8.0) 09/10/18 06:30 Ur Specific [place] 1.015 (1.003-1.030) 09/10/18 06:30 Urine Protein Negative mg/dL (NEGATIVE) 09/10/18 06:30 Urine Glucose (UA) Neg mg/dL (NEGATIVE) 09/10/18 06:30 Urine Ketones Negative mg/dL (NEGATIVE) 09/10/18 06:30 Urine Blood Negative (NEGATIVE) 09/10/18 06:30 Urine Nitrate Negative (NEGATIVE) 09/10/18 06:30 Urine Bilirubin Negative (NEGATIVE) 09/10/18 06:30 Urine Urobilinogen 0.2-1.0 mg/dL (0.2-1.0) 09/10/18 06:30 Ur Leukocyte Esterase Neg Nicole/uL (Negative) 09/10/18 06:30 Urine RBC (Auto) 1 /hpf (0-3) 09/10/18 06:30 Urine Microscopic WBC 1 /hpf (0-5) 09/10/18 06:30 Urine Opiates Screen Negative (NEGATIVE) 09/10/18 06:30 Urine Methadone Screen Negative (NEGATIVE) 09/10/18 06:30 Ur Barbiturates Screen Negative (NEGATIVE) 09/10/18 06:30 Ur Phencyclidine Scrn Negative (NEGATIVE) 09/10/18 06:30 Ur Amphetamines Screen Negative (NEGATIVE) 09/10/18 06:30 U Benzodiazepines Scrn Negative (NEGATIVE) 09/10/18 06:30 U Oth Cocaine Metabols Negative (NEGATIVE) 09/10/18 06:30 U Cannabinoids Screen Negative (NEGATIVE) 09/10/18 06:30 Alcohol, Quantitative < 10 mg/dl (0-10) 09/10/18 05:45 - Hospital Course Hospital Course: 53 yo F with a PMHx of Multiple Sclerosis, HTN, anxiety, depression was brought to ED on 09/10/18 by due to multiple sclerosis exacerbation. Pt was having increased fatigue and noncompliance with medication. Pt received Ativan 2mg and Solu-Medrol 125mg at ED. Head CT: stable and normal pressure hydrocephalus was found. Neurologist-Dr. Ramírez notified and aware of MS exac and NPH on CT he recommended 3 days of steroid therapy and PT with outpt f/u, discussed with pt about NPH in detail, she is aware and in agreement with follow up. Pt also aware she will get outpt MRI. Today pt ambulating well doing PT. Reports B/L LE numbness and tingling, headache resolved with Motrin. Denies weakness, blurry vision, urinary incontinence, SOB, chest pain, N/V/D/C or dysuria. Pt hemodynamically stable for discharge with outpt follow up with PMD Dr. Alvarez and Neurology Dr. Ramírez. - Date & Time of H&P Date of H&P: 09/10/18 Time of H&P: 11:27 Discharge Exam - Head Exam Head Exam: ATRAUMATIC, NORMAL INSPECTION - Eye Exam Eye Exam: EOMI, Normal appearance, PERRL - ENT Exam ENT Exam: Mucous Membranes Moist - Respiratory Exam Respiratory Exam: Clear to PA & Lateral. absent: Rales, Rhonchi, Wheezes - Cardiovascular Exam Cardiovascular Exam: RRR, +S1, +S2 - GI/Abdominal Exam GI & Abdominal Exam: Normal Bowel Sounds, Soft. absent: Tenderness - Extremities Exam Extremities exam: normal inspection - Neurological Exam Neurological exam: Alert, CN II-XII Intact, Normal Gait, Oriented x3 Additional comments: Strength and Sensation 5/5 B/L UE and LE Discharge Plan - Follow Up Plan Condition: FAIR Disposition: HOME/ ROUTINE Instructions: Multiple Sclerosis, Adult (DC) Additional Instructions: Follow up with PMD Dr. Alvarez and Dr. Ramírez Neurology as out pt Referrals: David Ramírez MD [Staff Provider] - Igor Alvarez MD [Staff Provider] - <Faviola Glaser - Last Filed: 09/13/18 15:27> Provider - Provider Date of Admission: 09/12/18 08:07 Attending physician: Igor Alvarez MD Hospital Course - Lab Results Lab Results: Most Recent Lab Values WBC 14.4 K/uL (4.8-10.8) H 09/12/18 04:30 RBC 3.76 Mil/uL (3.80-5.20) L 09/12/18 04:30 Hgb 11.2 g/dL (12.0-16.0) L 09/12/18 04:30 Hct 33.4 % (34.0-47.0) L 09/12/18 04:30 MCV 88.9 fl (81.0-99.0) 09/12/18 04:30 MCH 29.9 pg (27.0-31.0) 09/12/18 04:30 MCHC 33.6 g/dL (33.0-37.0) 09/12/18 04:30 RDW 13.0 % (11.5-14.5) 09/12/18 04:30 Plt Count 246 K/uL (130-400) 09/12/18 04:30 MPV 8.0 fl (7.2-11.7) 09/10/18 05:45 Neut % (Auto) 86.7 % (50.0-75.0) H 09/10/18 05:45 Lymph % (Auto) 8.5 % (20.0-40.0) L 09/10/18 05:45 Glynn % (Auto) 4.2 % (0.0-10.0) 09/10/18 05:45 Eos % (Auto) 0.2 % (0.0-4.0) 09/10/18 05:45 Baso % (Auto) 0.4 % (0.0-2.0) 09/10/18 05:45 Neut # (Auto) 9.6 K/uL (1.8-7.0) H 09/10/18 05:45 Lymph # (Auto) 0.9 K/uL (1.0-4.3) L 09/10/18 05:45 Glynn # (Auto) 0.5 K/uL (0.0-0.8) 09/10/18 05:45 Eos # (Auto) 0.0 K/uL (0.0-0.7) 09/10/18 05:45 Baso # (Auto) 0.0 K/uL (0.0-0.2) 09/10/18 05:45 Neutrophils % (Manual) 88 % (42-75) H 09/10/18 05:45 Lymphocytes % (Manual) 8 % (20-50) L 09/10/18 05:45 Monocytes % (Manual) 3 % (0-10) 09/10/18 05:45 Basophils % (Manual) 1 % (0-2) 09/10/18 05:45 Platelet Estimate Normal (NORMAL) 09/10/18 05:45 RBC Morphology Normal (NORMAL) 09/10/18 05:45 ESR 28 mm/hr (0-30) 09/10/18 05:45 PT 12.9 Seconds (9.8-13.1) 09/10/18 05:45 INR 1.1 09/10/18 05:45 APTT 30.8 Seconds (25.6-37.1) 09/10/18 05:45 Sodium 140 mmol/l (132-148) 09/12/18 04:30 Potassium 3.7 MMOL/L (3.6-5.0) 09/12/18 04:30 Chloride 101 mmol/L (98-107) 09/12/18 04:30 Carbon Dioxide 26 mmol/L (22-30) 09/12/18 04:30 Anion Gap 17 (10-20) 09/12/18 04:30 BUN 19 mg/dl (7-17) H 09/12/18 04:30 Creatinine 0.6 mg/dl (0.7-1.2) L 09/12/18 04:30 Est GFR ( Amer) > 60 09/12/18 04:30 Est GFR (Non-Af Amer) > 60 09/12/18 04:30 POC Glucose (mg/dL) 174 mg/dL (65-110) H 09/10/18 12:39 Random Glucose 157 mg/dL (65-105) H 09/12/18 04:30 Lactic Acid 1.7 mmol/L (0.7-2.1) 09/10/18 05:45 Calcium 9.9 mg/dL (8.4-10.2) 09/12/18 04:30 Total Bilirubin 0.4 mg/dl (0.2-1.3) 09/10/18 05:45 AST 29 U/L (14-36) 09/10/18 05:45 ALT 30 U/L (9-52) 09/10/18 05:45 Alkaline Phosphatase 91 U/L (38-126) 09/10/18 05:45 Total Creatine Kinase 54 U/L (30-135) 09/10/18 05:45 Total Protein 8.0 G/DL (6.3-8.2) 09/10/18 05:45 Albumin 4.8 g/dL (3.5-5.0) 09/10/18 05:45 Globulin 3.2 gm/dL (2.2-3.9) 09/10/18 05:45 Albumin/Globulin Ratio 1.5 (1.0-2.1) 09/10/18 05:45 Urine Color Yellow (YELLOW) 09/10/18 06:30 Urine Clarity Cloudy (Clear) 09/10/18 06:30 Urine pH 7.0 (5.0-8.0) 09/10/18 06:30 Ur Specific [place] 1.015 (1.003-1.030) 09/10/18 06:30 Urine Protein Negative mg/dL (NEGATIVE) 09/10/18 06:30 Urine Glucose (UA) Neg mg/dL (NEGATIVE) 09/10/18 06:30 Urine Ketones Negative mg/dL (NEGATIVE) 09/10/18 06:30 Urine Blood Negative (NEGATIVE) 09/10/18 06:30 Urine Nitrate Negative (NEGATIVE) 09/10/18 06:30 Urine Bilirubin Negative (NEGATIVE) 09/10/18 06:30 Urine Urobilinogen 0.2-1.0 mg/dL (0.2-1.0) 09/10/18 06:30 Ur Leukocyte Esterase Neg Nicole/uL (Negative) 09/10/18 06:30 Urine RBC (Auto) 1 /hpf (0-3) 09/10/18 06:30 Urine Microscopic WBC 1 /hpf (0-5) 09/10/18 06:30 Urine Opiates Screen Negative (NEGATIVE) 09/10/18 06:30 Urine Methadone Screen Negative (NEGATIVE) 09/10/18 06:30 Ur Barbiturates Screen Negative (NEGATIVE) 09/10/18 06:30 Ur Phencyclidine Scrn Negative (NEGATIVE) 09/10/18 06:30 Ur Amphetamines Screen Negative (NEGATIVE) 09/10/18 06:30 U Benzodiazepines Scrn Negative (NEGATIVE) 09/10/18 06:30 U Oth Cocaine Metabols Negative (NEGATIVE) 09/10/18 06:30 U Cannabinoids Screen Negative (NEGATIVE) 09/10/18 06:30 Alcohol, Quantitative < 10 mg/dl (0-10) 09/10/18 05:45 Attending/Attestation - Attestation I have personally seen and examined this patient.: Yes I have fully participated in the care of the patient.: Yes I have reviewed all pertinent clinical information, including history, physical exam and plan: Yes Notes (Text): 09/13/18 15:27 Agree with findings and plan as above.
[2018-09-13] MEDS: methylPREDNISolone 1 GM in Sodium Chloride 0.9% 250 ML IV SCH (09:58)
[2018-09-13 16:18] VITALS: BP 147/84; PULSE 118; RESP 20; TEMP 98.7; O2SAT 96
== END 2018-09-13 17:35 | disposition home or self-care (01) | DRG 59 ==
LOC: H.ER 05:03 → INTOOBSV 09:37 → H.ERHOLD 09:37 → H.TEL 12:47 → OBSVTOIN 09-12 08:07
PROVIDERS: ADMIT Internal Medicine; ATTEND Internal Medicine
DX: G35 Multiple sclerosis (principal); G91.2 (Idiopathic) normal pressure hydrocephalus; I10 Essential (primary) hypertension; G89.29 Other chronic pain; F41.8 Other specified anxiety disorders; F32.9 Major depressive disorder, single episode, unspecified; D64.9 Anemia, unspecified; Z91.14 Patient's other noncompliance with medication regimen